=== PATIENT | female | born 1950 | race Caucasian/White ===

== ENCOUNTER 2021-01-09 13:15 | Emergency (ER) | payer MEDICARE, SELFPAY ==
[2021-01-09 13:20] VITALS: BP 117/72; PULSE 86; RESP 34; TEMP 36.9; O2SAT 93; BMI 28.3
--- NOTE | 2021-01-09 13:27 | XR_ITS ---
WS: [id number] XR chest 1V portable [id number] REASON FOR EXAM: allergic reaction FINDINGS: The chest is unchanged compared to 10/07/2017. There is moderate tortuosity of the thoracic aorta without aneurysmal dilatation. There is mild cardi omegaly. Calcified granulomatous disease is seen bilaterally. No active pulmonary parenchymal or pleural disea se is noted. Moderate changes of degenerative spondylosis in the mid and lower thoracic spine. XR/XR chest 1V portable [id number] IMPRESSION: No acute chest abnormality.
--- NOTE | 2021-01-09 13:28 | ECG_ITS ---
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 Measurements Intervals [place] Rate: 75 P: 30 AR: 160 QRS: -24 QRSD: 98 T: 34 QT: 400 QTc: 450 Interpretive Statements SINUS RHYTHM WITH OCCASIONAL SUPRAVENTRICULAR PREMATURE COMPLEXES BORDERLINE LEFT AXIS DEVIATION [QRS AXIS < -20] NONSPECIFIC ST & T-WAVE ABNORMALITY Compared to ECG 10/07/2017 18:26:52 T-wave abnormality now present Sinus arrhythmia no longer present Electronically Signed On 01-10-2021 7:35:51 CDT by Omaira Burns M.D. [id number]
--- NOTE | 2021-01-09 13:29 | ED_ITS ---
HPI - Allergic Reaction General: Chief complaint: Allergic Reaction Stated complaint: ALLERGIC REACTION Time Seen by Provider: 01/09/21 13:27 History of Present Illness: HPI narrative: The patient is a 70-year-old female who comes to the ER with a severe allergic reaction. Hoarse voice, swollen tongue, shortness of breath, and a rash. She says the reaction started last night with tongue swelling and face swelling and she took a Benadryl. This morning it was worse and she took another Benadryl however then she broke out in a rash all over her body and her voice became hoarse so she came to the ED. 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 MD complaint: allergic reaction and facial swelling Exposure: unknown Associated symptoms: Reports difficulty breathing, dysphagia, facial swelling, hoarseness, itching, rash and tongue swelling; Deny dizziness Severity: severe Treatment prior to arrival: benadryl Review of Systems General: Reports: 10 or more systems reviewed and unremarkable except in HPI and below Const: Denies: fatigue Eyes: Denies: change in vision, blurry vision or eye redness ENMT: Reports: hoarseness Card: Denies: chest pain, palpitations, irregular heart rhythm, edema, dyspnea on exertion or orthopnea Resp: Reports: dyspnea; Denies: productive cough or non-productive cough GI: Reports: dysphagia : Denies: flank pain, difficulty voiding, urinary frequency or urinary urgency Musc: Denies: neck pain, back pain, extremity pain, joint pain, joint redness, limited range of motion or muscle weakness Skin/Breast: Reports: rash and erythema; Denies: pruritus, skin pain or skin tenderness Neuro: Denies: headache(s), numbness in extremities, weakness in extremities, sensory changes, difficulty walking, dizziness, confusion or Slurred speech present Psych: Denies: anxiety or depression Endo: Denies: polyuria All/Imm: Reports: tongue swelling and facial swelling Physical Exam Narrative: EXAM NARRATIVE: angioedema to tongue, lips. Swollen face. Rash to chest, arms, back. Const: COMMON NORMALS: patient oriented x3 and alert GENERAL APPEARANCE: well kempt and anxious ORIENTATION/CONSCIOUSNESS: Yes oriented to person, Yes oriented to place and Yes oriented to time HENMT: COMMON NORMALS: normocephalic, external ears normal and Normal external nose present HEAD & SCALP: normal to inspection and normocephalic NOSE: Normal external nose present EXTERNAL EAR: Yes external ears normal MOUTH: Normal oral and palatal mucosa present THROAT: posterior oropharynx normal Eye: COMMON NORMALS: Equal, round and reactive pupils present and EOMs intact bilaterally GENERAL EYE: appearance normal, both eyes and all related structures PUPIL: Yes Equal, round and reactive pupils present Neck/C-Spine: COMMON NORMALS: full ROM, no lymphadenopathy, no meningeal signs and no JVD GENERAL: Yes normal visual inspection Lymph: LYMPHATIC: no lymphadenopathy noted Chest: COMMONS NORMALS: normal inspection of the chest and normal palpation of entire chest wall Resp: COMMON NORMALS: normal respiratory effort, No retractions, No use of accessory muscles, clear to auscultation bilaterally and percussion normal EFFORT & INSPECTION: Yes able to speak in complete sentences AUSCULTATION: clear to auscultation bilaterally PERCUSSION: percussion normal Cardio: COMMON NORMALS: no JVD, regular rate, regular rhythm, S1 normal heart sound present, S2 normal heart sound present and Peripheral pulses 2+ throughout RATE: regular rate RHYTHM: regular rhythm HEART SOUNDS: S1 normal heart sound present and S2 normal heart sound present PERIPHERAL PULSES: Peripheral pulses 2+ throughout GI: COMMON NORMALS: Normal to inspection, nondistended, normoactive bowel sounds present, Soft to palpation, non-tender and no masses INSPECTION: Yes normal to inspection PALPATION: Yes Soft to palpation : COMMON NORMALS: Yes no CVA tenderness BLADDER/KIDNEY EXAM: Yes no CVA tenderness Back/Pelvis: COMMON NORMALS: no CVA tenderness, thoracic and lumbar spine normal to inspection, no thoracic nor lumbar tenderness and thoraco-lumbar ROM normal Extremity: COMMON NORMALS: normal to inspection, full ROM, capillary refill normal, no joint enlargement and no pedal edema GENERAL: Yes normal exam except as noted Neuro: COMMON NORMALS: patient oriented x3, CN's II-XII intact bilaterally, moves all extremities, no focal motor deficits, no sensory deficits noted and gait normal SENSORIUM/ORIENTATION: Yes alert, Yes oriented to person, Yes oriented to place and Yes oriented to time MENINGEAL SIGNS: Yes no meningeal signs Psych: COMMON NORMALS: mental status grossly normal, Normal thought process present, cooperative, normal affect and speech normal APPEARANCE: Yes well kempt ATTITUDE: Yes calm SPEECH: Yes normal speech THOUGHT PROCESS: Normal thought process present Skin: COMMON NORMALS: no rashes or lesions noted GENERAL SKIN EXAM: no rashes or lesions noted Course Vital Signs: Vital signs: Vital Signs Temperature 98.4 F 01/09/21 13:20 Pulse Rate 77 01/09/21 13:51 Respiratory Rate 16 01/09/21 13:45 Blood Pressure 168/81 01/09/21 13:42 Pulse Oximetry 98 01/09/21 13:45 MDM - Allergic Reaction MDM Narrative: Medical decision making narrative: The patient came in with angioedema and rash to unknown trigger. She does have severe history of bee sting allergic reactions however she was not stung. Recommended she keep a diary of medicines and foods as well as other exposures. She was given IV fluids, epinephrine, Benadryl, Pepcid and her symptoms improved rapidly. She is now breathing normal, talking normal, and asking for discharge. Discussed with her in detail how to use the EpiPen at home and Benadryl. ER with worsening symptoms and 911 with any swelling of lips, tongue, or shortness of breath Lab Data: Labs: Lab Results 01/09/21 01/09/21 01/09/21 Range/Units 13:30 13:30 13:52 WBC 9.0 (4.0-10.0) 10^3/ uL RBC 5.09 (4.1-5.3) 10^6/u L Hgb 14.6 (11.5-15.3) g/dL Hct 44.2 (37.0-47.0) % MCV 86.8 (81-99) fL MCH 28.7 (28.0-34.0) pg MCHC 33.0 (30.0-36.0) g/dL RDW 14.2 (12.1-15.1) % Plt Count 344 (130-400) 10^3/c mm MPV 11.0 H (7.4-10.4) fL Neut % (Auto) 54.6 % Lymph % (Auto) 33.2 % [place] % (Auto) 8.0 % Eos % (Auto) 3.4 % Baso % (Auto) 0.6 % Neut # (Auto) 4.93 (1.8-7.7) 10^3/u L Lymph # (Auto) 3.0 (0.8-4.8) 10^3/u L [place] # (Auto) 0.7 (0.2-0.9) 10^3/u L Eos # (Auto) 0.3 (0.0-0.8) 10^3/u L Baso # (Auto) 0.1 (0.0-0.1) 10^3/u L Nucleated RBC % (a uto) 0 % Nucleated RBCs # 0.0 /100WBC Specimen Type Arterial Sample Site Lr ABG pH 7.40 (7.35-7.45) ABG pCO2 37.8 (35-45) mmHg ABG pO2 77.8 L (80.0-100.0) mmH g ABG HCO3 23.7 (22-26) mmol/L ABG Base Excess -0.7 (-2.0-2.0) mmol/ L Bonifacio Test Pos Hematocrit 23.7 L (37-47) % O2 Delivery Device Roomair FiO2 21.0 % Specimen Drawn By [employer]ak Material Handling Equipment Stevedore ID Cak Sodium 139 (136-145) mmol/L Potassium 3.5 (3.5-5.1) mmol/L Chloride 102 (98-107) mmol/L Carbon Dioxide 24 (22-29) mmol/L Anion Gap 16.5 (5-19) BUN 15 (8-23) mg/dL Creatinine 0.8 (0.5-0.9) mg/dL GFR Calculation 71.1 L (90-130) mL/min Glucose 142 H (65-115) mg/dL Calculated Osmolal ity 291 (285-295) mOsm/k g Calcium 9.8 (8.5-10.5) mg/dL Total Bilirubin 0.6 (0.15-1.2) mg/dL AST 18 (0-32) U/L ALT 23 (0-33) U/L Alkaline Phosphata se 62 (35-105) IU/L Total Protein 7.5 (6.6-8.7) g/dL Albumin 4.7 (3.5-5.2) g/dL Globulin 2.8 (1.3-4.6) g/dL Urine Color (Yellow) Urine Appearance (CLEAR) Urine pH (5-7) Ur Specific Gravit y (1.005-1.030) Urine Protein (Negative) Urine Glucose (UA) (Normal) Urine Ketones (Negative) Urine Blood (Negative) Urine Nitrate (Negative) Urine Bilirubin (Negative) Urine Urobilinogen (Negative) mg/dL Ur Leukocyte Chiara ase (Negative) 01/09/21 Range/Units 14:46 WBC (4.0-10.0) 10^3/ uL RBC (4.1-5.3) 10^6/u L Hgb (11.5-15.3) g/dL Hct (37.0-47.0) % MCV (81-99) fL MCH (28.0-34.0) pg MCHC (30.0-36.0) g/dL RDW (12.1-15.1) % Plt Count (130-400) 10^3/c mm MPV (7.4-10.4) fL Neut % (Auto) % Lymph % (Auto) % [place] % (Auto) % Eos % (Auto) % Baso % (Auto) % Neut # (Auto) (1.8-7.7) 10^3/u L Lymph # (Auto) (0.8-4.8) 10^3/u L [place] # (Auto) (0.2-0.9) 10^3/u L Eos # (Auto) (0.0-0.8) 10^3/u L Baso # (Auto) (0.0-0.1) 10^3/u L Nucleated RBC % (a uto) % Nucleated RBCs # /100WBC Specimen Type Sample Site ABG pH (7.35-7.45) ABG pCO2 (35-45) mmHg ABG pO2 (80.0-100.0) mmH g ABG HCO3 (22-26) mmol/L ABG Base Excess (-2.0-2.0) mmol/ L Bonifacio Test Hematocrit (37-47) % O2 Delivery Device FiO2 % Specimen Drawn By Material Handling Equipment [employer]ore ID Sodium (136-145) mmol/L Potassium (3.5-5.1) mmol/L Chloride (98-107) mmol/L Carbon Dioxide (22-29) mmol/L Anion Gap (5-19) BUN (8-23) mg/dL Creatinine (0.5-0.9) mg/dL GFR Calculation (90-130) mL/min Glucose (65-115) mg/dL Calculated Osmolal ity (285-295) mOsm/k g Calcium (8.5-10.5) mg/dL Total Bilirubin (0.15-1.2) mg/dL AST (0-32) U/L ALT (0-33) U/L Alkaline Phosphata se (35-105) IU/L Total Protein (6.6-8.7) g/dL Albumin (3.5-5.2) g/dL Globulin (1.3-4.6) g/dL Urine Color Straw (Yellow) Urine Appearance Clear (CLEAR) Urine pH 6 (5-7) Ur Specific Gravit y 1.000 L (1.005-1.030) Urine Protein Neg (Negative) Urine Glucose (UA) Norm (Normal) Urine Ketones Negative (Negative) Urine Blood 2+ H (Negative) Urine Nitrate Negative (Negative) Urine Bilirubin Neg (Negative) Urine Urobilinogen Norm (Negative) mg/dL Ur Leukocyte Chiara ase Negative (Negative) Discharge Plan Discharge Patient Disposition: Home Clinical Impression: Allergic reaction Condition: Stable Prescriptions: New Medrol (Yifan) 4 mg tablets,dose pack See Rx Instructions .ROUTE .COMPLEX Qty: 21 RF: 0 EpiPen 2-Yifan 0.3 mg/0.3 mL auto-injector 0.3 mg IM Q10M PRN (Reason: anaphylaxis) Qty: 2 RF: 0 Benadryl 25 mg capsule 25 mg PO Q4H PRN (Reason: allergic reaction) Qty: 30 RF: 0 No Action hydrocodone-acetaminophen 10-325 mg tablet 1 - 2 tab PO Q4H PRN (Reason: Pain) RF: 0 diclofenac sodium 75 mg tablet,delayed release (DR/EC) 75 mg PO BID RF: 0 losartan-hydrochlorothiazide 50-12.5 mg tablet 1 tab PO QAM RF: 0 duloxetine 30 mg capsule,delayed release(DR/EC) See Rx Instructions .ROUTE .COMPLEX RF: 0 Adult Multivitamin Gummies 200 mcg Tablet,Chewable 1 tab PO BID RF: 0 Tylenol Extra Strength 500 mg Tablet 500 - 1,000 mg PO PRN RF: 0 Discharge Orders: Discharge ED (Routine); Ordered 01/09/21 Ordered By: Harrison Bassett Referrals: Yash Sosa, [Primary Care Provider] - Discharge Diet: Advance as tolerated Discharge Activity: Resume usual activity Patient Instructions: Allergic Reaction, Angioedema (ED), Opioid Safety Activity Restrictions/Additional Instructions: You have had an allergic reaction to an unknown trigger. Please keep a diary of foods and medicines you take and watch for return of your symptoms. Return to the ER if symptoms worsen or call 911 if you are at all short of breath or have any lip, or tongue swelling. Coding Level of Care Code ED Licensed Clinical Psychologist for Chg Fwd Exam Comprehensive
[2021-01-09] MEDS: EPINEPHrine 1 mg/mL INJ 0.3 MG IM (13:33)
[2021-01-09] MEDS: diphenhydrAMINE 50 mg/mL SDV 1mL IVP (13:33)
[2021-01-09] MEDS: sodium chloride 0.9% 1,000 ML 999 ML IV (13:33)
[2021-01-09 13:36] VITALS: BP 120/73; PULSE 80; RESP 16; O2SAT 97
[2021-01-09 13:42] VITALS: BP 168/81; PULSE 78; RESP 18; O2SAT 98
[2021-01-09] MEDS: famotidine 20 mg/2 mL INJ 40 MG IVP (13:43)
[2021-01-09 13:45] VITALS: PULSE 71; RESP 16; O2SAT 98
[2021-01-09] MEDS: ipratropium-albuterol 3 mL Neb INHALATION (13:45)
[2021-01-09 13:51] VITALS: PULSE 77
[2021-01-09 13:52] LABS: Basophils # 0.1 10^3/uL (0.0-0.1); Basophils % 0.6 %; Eosinophils # 0.3 10^3/uL (0.0-0.8); Eosinophils % 3.4 %; Hematocrit 44.2 % (37.0-47.0); Hemoglobin 14.6 g/dL (11.5-15.3); Lymphocytes % 33.2 %; Mean Corpuscular Hemoglobin 28.7 pg (28.0-34.0); Mean Corpuscular Volume 86.8 fL (81-99); Monocytes # 0.7 10^3/uL (0.2-0.9); Neutrophils # 4.93 10^3/uL (1.8-7.7); Neutrophils % 54.6 %; Nucleated Red Blood Cells % 0 %; Platelet Count 344 10^3/cmm (130-400); Red Blood Count 5.09 10^6/uL (4.1-5.3); Red Cell Distribution Width 14.2 % (12.1-15.1)
[2021-01-09 14:03] LABS: ABG PCO2 37.8 mmHg (35-45); Base Excess ABG -0.7 mmol/L (-2.0-2.0); Blood Gas Allen Test POS; Blood Gas Drawn By CAK; Blood Gas Operator Identificat CAK; HCO3 ABG 23.7 mmol/L (22-26); Oxygen Device ROOMAIR; PO2 ABG 77.8 mmHg (80.0-100.0)
[2021-01-09 14:04] LABS: Arterial Blood Gas Hematocrit 23.7 % (37-47); Blood Gas Sample Site LR; Blood Gas Sample Type ARTERIAL
[2021-01-09 14:12] LABS: Alanine Aminotransferase 23 U/L (0-33); Albumin Level 4.7 g/dL (3.5-5.2); Alkaline Phosphatase 62 IU/L (35-105); Anion Gap 16.5 (5-19); Aspartate Amino Transferase 18 U/L (0-32); Blood Urea Nitrogen 15 mg/dL (8-23); Calcium 9.8 mg/dL (8.5-10.5); Carbon Dioxide 24 mmol/L (22-29); Chloride 102 mmol/L (98-107); Globulin 2.8 g/dL (1.3-4.6); Glomerular Filtration Rate 71.1 mL/min (90-130); Glucose 142 mg/dL (65-115); Osmolality Calculated 291 mOsm/kg (285-295); Potassium 3.5 mmol/L (3.5-5.1); Sodium 139 mmol/L (136-145); Total Bilirubin 0.6 mg/dL (0.15-1.2); Total Protein 7.5 g/dL (6.6-8.7)
[2021-01-09] MEDS: dexamethasone 10 mg/mL INJ IVP (14:52)
[2021-01-09 15:06] LABS: Add Urine Microscopic? YES; Bilirubin Urine Neg (Negative); Blood Urine 2+ (Negative); Glucose Urine UA Norm (Normal); Ketones Urine Negative (Negative); Leukocyte Esterase Urine Negative (Negative); Nitrate Urine Negative (Negative); Protein Urine Neg (Negative); Urine Appearance Clear (CLEAR); Urine Color Straw (Yellow); Urobilinogen Urine Norm (Negative); pH Urine 6 (5-7)
[2021-01-09 15:13] LABS: Add Urine Culture? No; Bacteria Urine TRACE /hpf; Hyaline Casts Urine 0-4 /lpf; RBC Urine 0-4 /hpf (0-2); Squamous Epithelial Cell Urine 0-4 /hpf (0-5); WBC Urine 0-4 /hpf (0-5)
[2021-01-09 15:40] VITALS: BP 160/63; PULSE 63; RESP 17; O2SAT 96
== END 2021-01-09 15:42 | disposition home or self-care (01) ==
PROVIDERS: Emergency Provider Family Medicine; PCP Family Medicine
DX: T78.40XA Allergy, unspecified, initial encounter (principal)
CPT/HCPCS: 36600; 71045; 80053; 81001; 82803; 85025; 93005; 94640; 96361; 96372; 96374; 96375; 99284; J0171; J1100; J1200; J3490; J7030

== ENCOUNTER → 2023-02-18 12:49 | Outpatient (BNVA) | payer MEDICARE, SELFPAY | PROVIDERS: PCP Family Medicine; Visit Provider Family Medicine | DX: I10 Essential (primary) hypertension (principal); F41.9 Anxiety disorder, unspecified; G89.29 Other chronic pain; M19.90 Unspecified osteoarthritis, unspecified site | CPT/HCPCS: 80053; 80061 ==

== ENCOUNTER 2023-06-11 10:34 | Inpatient (IN) | payer MEDICARE, SELFPAY ==
[2023-06-11] VITALS (57 sets, daily range): BP systolic 130–230; BP diastolic 55–100; PULSE 40–91; RESP 15–40; TEMP 37.1; O2SAT 91–98; BMI 26.5
--- NOTE | 2023-06-11 10:56 | XRR_ITS ---
PROCEDURE INFORMATION: Exam: XR Chest Exam date and time: 06/11/2023 11:03 AM Age: 72 years old Clinical indication: Cough and dyspnea; Additional info: Dyspnea/cough TECHNIQUE: Imaging protocol: Radiologic exam of the chest. Views: 1 view. COMPARISON: 1. CR XR chest 1V portable [id number] 01/09/2021 1:54 PM 2. CR XR chest 1V [id number] 10/07/2017 5:42 PM 3. CR XR chest 1V [id number] 02/09/2017 11:46 AM FINDINGS: Lungs: Pulmonary vascular congestion. No consolidation. Pleural spaces: No pleural effusion or pneumothorax. Heart/Mediastinum: Enlarged cardiac silhouette. Bones/joints: Multiple old right rib fractures. Degenerative changes along the spine. XR/XR chest 1V portable [id number] IMPRESSION: Cardiomegaly and pulmonary vascular congestion.
--- NOTE | 2023-06-11 10:59 | W.ED.ARRPALP ---
HPI - Arrhythmia/Palpitations General: Chief Complaint: Arrhythmia/Palpitations Stated Complaint: physician sent, high bp, sob Time Seen by Provider: 06/11/23 10:48 Source: patient Mode of arrival: ambulatory History of Present Illness: 72-year-old female presents emergency room with hypertension and bradycardia. Patient was seen yesterday by Dr. Quiñones was bradycardic and was advised to go to the emergency room she arrived this morning. She still is hypertensive and bradycardic she is also having some new onset orthopnea. No fever sweats or chills no productive cough. She is not on any beta-blockers or calcium channel blockers. She denies any chest discomfort. MD complaint: rapid heart beat and heart racing Onset (ago): day(s) Duration: intermittent Severity: moderate Context: occurred during rest Associated symptoms: Deny anxiety, cough, diaphoresis, muscle cramps, nausea, paresthesias, pre-syncope, sense of impending doom, short of breath, syncope or vomiting Review of Systems Const: Denies: fever(s), chills, fatigue, malaise or diaphoresis ENMT: Denies: throat pain, ear or mastoid pain, nasal discharge or nasal congestion Card: Reports: palpitations; Denies: chest pain, syncope or pre-syncope Resp: Denies: dyspnea, productive cough or non-productive cough GI: Denies: nausea or vomiting : Denies: flank pain, difficulty voiding, dysuria, urinary frequency or urinary urgency Musc: Denies: neck pain, back pain or muscle cramps Skin/Breast: Denies: rash or pruritus Psych: Denies: anxiety PFSH ED PFSH: Medical History Arthritis Chronic pain Fatigue Hypertension Social History Smoking and tobacco status: never smoked Lives independently: Yes Physical Exam Const: GENERAL APPEARANCE: cooperative and comfortable ORIENTATION/CONSCIOUSNESS: Yes awake, Yes oriented to person, Yes oriented to place and Yes oriented to time HENMT: COMMON NORMALS: normocephalic, atraumatic and hearing grossly normal bilaterally HEAD & SCALP: normocephalic and atraumatic Resp: COMMON NORMALS: normal respiratory effort, No retractions, No use of accessory muscles and clear to auscultation bilaterally AUSCULTATION: clear to auscultation bilaterally Cardio: COMMON NORMALS: regular rhythm RATE: bradycardic RHYTHM: regular rhythm GI: COMMON NORMALS: Soft to palpation and No hepatosplenomegaly present AUSCULTATION: Yes normoactive bowel sounds PALPATION: Yes Soft to palpation, No Tenderness to palpation present (GI), No Guarding due to palpation present (GI) and Yes No hepatosplenomegaly present Extremity: COMMON NORMALS: normal to inspection, capillary refill normal, no clubbing, cyanosis or edema, no calf tenderness and no pedal edema Neuro: SENSORIUM/ORIENTATION: Yes oriented to person, Yes oriented to place and Yes oriented to time Skin: COMMON NORMALS: no rashes or lesions noted GENERAL SKIN EXAM: no rashes or lesions noted Course Vital Signs: Vital signs: Vital Signs Temperature 98.7 F 06/11/23 10:49 Pulse Rate 43 L 06/11/23 13:30 Respiratory Rate 19 H 06/11/23 13:30 Blood Pressure 176/62 06/11/23 13:15 Pulse Oximetry 96 06/11/23 13:30 MDM - Arrhythmia/Palpitations Medical Decision Making Patient has bradycardia at times his rhythm strips look like he has a full third-degree block at other times it does look like a Mobitz type II. She is actually hypertensive with that and she does appear to be in some mild congestive heart failure she is given 40 Lasix as well as hydralazine we will admit patient to the ICU discussed Dr. Diaz and consult cardiology. Medical Records I reviewed the patient's medical records. Lab Data I reviewed the patient's lab results. 06/11/23 11:17 06/11/23 11:17 Radiology Impressions Chest X-Ray 06/11/23 10:56 IMPRESSION: Cardiomegaly and pulmonary vascular congestion. Laboratory Results WBC 8.2 10^3/uL (4.0-10.0) 06/11/23 11:17 RBC 4.69 10^6/uL (4.1-5.3) 06/11/23 11:17 Hgb 13.4 g/dL (11.5-15.3) 06/11/23 11:17 Hct 42.7 % (37.0-47.0) 06/11/23 11:17 MCV 91.0 fl (81-99) 06/11/23 11:17 MCH 28.6 pg (28.0-34.0) 06/11/23 11:17 MCHC 31.4 g/dL (30.0-36.0) 06/11/23 11:17 RDW 15.9 % (12.1-15.1) H 06/11/23 11:17 Plt Count 281 10^3/cmm (130-400) 06/11/23 11:17 MPV 10.3 fL (7.4-10.4) 06/11/23 11:17 Neut % (Auto) 80.3 % 06/11/23 11:17 Lymph % (Auto) 11.8 % 06/11/23 11:17 [place] % (Auto) 6.8 % 06/11/23 11:17 Eos % (Auto) 0.2 % 06/11/23 11:17 Baso % (Auto) 0.7 % 06/11/23 11:17 Neut # (Auto) 6.61 10^3/uL (1.8-7.7) 06/11/23 11:17 Lymph # (Auto) 1.0 10^3/uL (0.8-4.8) 06/11/23 11:17 [place] # (Auto) 0.6 10^3/uL (0.2-0.9) 06/11/23 11:17 Eos # (Auto) 0.0 10^3/uL (0.0-0.8) 06/11/23 11:17 Baso # (Auto) 0.1 10^3/uL (0.0-0.1) 06/11/23 11:17 Nucleated RBC % (auto) 0 % 06/11/23 11:17 Nucleated RBCs # 0.0 /100WBC 06/11/23 11:17 Sodium 141 mmol/L (136-145) 06/11/23 11:17 Potassium 3.6 mmol/L (3.5-5.1) 06/11/23 11:17 Chloride 103 mmol/L (98-107) 06/11/23 11:17 Carbon Dioxide 23 mmol/L (22-29) 06/11/23 11:17 Anion Gap 18.6 (5-19) 06/11/23 11:17 BUN 14 mg/dL (8-23) 06/11/23 11:17 Creatinine 0.8 mg/dL (0.5-0.9) 06/11/23 11:17 GFR Calculation Not Reportable 06/11/23 11:17 Glucose 106 mg/dL (65-115) 06/11/23 11:17 Calculated Osmolality 293 mOsm/kg (285-295) 06/11/23 11:17 Calcium 9.7 mg/dL (8.5-10.5) 06/11/23 11:17 Total Bilirubin 1.7 mg/dL (0.15-1.2) H 06/11/23 11:17 AST 14 U/L (0-32) 06/11/23 11:17 ALT 15 U/L (0-33) 06/11/23 11:17 Alkaline Phosphatase 77 U/L (35-105) 06/11/23 11:17 Troponin T Baseline 22 ng/L (0-10) H 06/11/23 11:17 Troponin T 120 Minute 38.19 ng/L (0-10) H 06/11/23 13:28 Delta Troponin T 16.19 ABS# (0-10) H* 06/11/23 13:28 NT-Pro-B Natriuret Pep 6747 pg/mL (0-125) H 06/11/23 11:17 Total Protein 6.9 g/dL (6.6-8.7) 06/11/23 11:17 Albumin 4.1 g/dL (3.5-5.2) 06/11/23 11:17 Globulin 2.8 g/dL (1.3-4.6) 06/11/23 11:17 TSH 1.43 uIU/mL (0.27-4.20) 06/11/23 11:17 Discharge Plan Discharge Patient Disposition: Admitted As Inpatient Clinical Impression: Heart block, Hypertension, Congestive heart failure Condition: Stable Coding Level of Care Code ED Supervisor Assembly Department for Rena Hannah
--- NOTE | 2023-06-11 11:08 | ECG_ITS ---
[facility] Test Date: 2023-06-11 Pat Name: Cecily Tyler Department: Room: Gender: Female Manager Music: : 1950 Requested By: Joshua Frias Order Number: [id number] Dana MD: José Miguel Pichardo M.D. Measurements Intervals [place] Rate: 46 P: 80 NE: 186 QRS: -13 QRSD: 94 T: 78 QT: 447 QTc: 391 Interpretive Statements Third-degree AV block POSSIBLE RIGHT ATRIAL ENLARGEMENT [0.25mV P-WAVE] NONSPECIFIC ST & T-WAVE ABNORMALITY Compared to ECG 01/09/2021 13:33:24 Sinus rhythm no longer present T-wave abnormality still present Electronically Signed On 06-11-2023 14:44:31 CDT by José Miguel Pichardo M.D. [id number]
[2023-06-11 11:25] LABS: Basophils # 0.1 10^3/uL (0.0-0.1); Basophils % 0.7 %; Eosinophils % 0.2 %; Hematocrit 42.7 % (37.0-47.0); Hemoglobin 13.4 g/dL (11.5-15.3); Lymphocytes % 11.8 %; Mean Corpuscular HGB Conc 31.4 g/dL (30.0-36.0); Mean Corpuscular Hemoglobin 28.6 pg (28.0-34.0); Mean Platelet Volume 10.3 fL (7.4-10.4); Monocytes # 0.6 10^3/uL (0.2-0.9); Monocytes % 6.8 %; Neutrophils # 6.61 10^3/uL (1.8-7.7); Neutrophils % 80.3 %; Nucleated Red Blood Cells % 0 %; Platelet Count 281 10^3/cmm (130-400); Red Blood Count 4.69 10^6/uL (4.1-5.3); Red Cell Distribution Width 15.9 % (12.1-15.1); White Blood Count 8.2 10^3/uL (4.0-10.0)
[2023-06-11] MEDS: hyDRALAzine 20 mg/mL INJ 1 mL IVP (11:42)
[2023-06-11] MEDS: FUROsemide 10 mg/mL SDV 4mL 40 MG IVP (11:43)
--- NOTE | 2023-06-11 11:50 | PC.NURSE ---
Addendum entered by Sharon King RN 06/11/23 11:52: time correction @1150 Original Note: furosemide 40mg given to MOON Cottrell to administer @9770
[2023-06-11 11:54] LABS: Troponin(5th) Baseline 22 ng/L (0-10)
[2023-06-11 12:17] LABS: Alanine Aminotransferase 15 U/L (0-33); Albumin Level 4.1 g/dL (3.5-5.2); Alkaline Phosphatase 77 U/L (35-105); Anion Gap 18.6 (5-19); Aspartate Amino Transferase 14 U/L (0-32); Blood Urea Nitrogen 14 mg/dL (8-23); Calcium 9.7 mg/dL (8.5-10.5); Carbon Dioxide 23 mmol/L (22-29); Chloride 103 mmol/L (98-107); Globulin 2.8 g/dL (1.3-4.6); Glucose 106 mg/dL (65-115); NT Pro B Type Natriuretic Pept 6747 pg/mL (0-125); Osmolality Calculated 293 mOsm/kg (285-295); Potassium 3.6 mmol/L (3.5-5.1); Sodium 141 mmol/L (136-145); Thyroid Stimulating Hormone 1.43 uIU/mL (0.27-4.20); Total Bilirubin 1.7 mg/dL (0.15-1.2); Total Protein 6.9 g/dL (6.6-8.7)
--- NOTE | 2023-06-11 12:19 | ECG_ITS ---
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 Measurements Intervals [place] Rate: 51 P: 0 [place]: 0 QRS: -15 QRSD: 98 T: 70 QT: 592 QTc: 549 Interpretive Statements Third-degree AV block MODERATE ST DEPRESSION [0.05+ mV ST DEPRESSION] PROLONGED QT INTERVAL CRITICAL TEST RESULT Compared to ECG 06/11/2023 11:08:16 Ventricular premature complex(es) now present ST (T wave) deviation now present Prolonged QT interval now present T-wave abnormality no longer present Electronically Signed On 06-11-2023 14:47:35 CDT by José Miguel Pichardo M.D. [id number]
[2023-06-11] MEDS: promethazine 25 mg/mL SDV 1 mL 12.5 MG IM (12:42)
--- NOTE | 2023-06-11 12:51 | ECG_ITS ---
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 Measurements Intervals [place] Rate: 41 P: 81 [place]: 177 QRS: 2 QRSD: 102 T: 74 QT: 593 QTc: 494 Interpretive Statements Third-degree AV block POSSIBLE RIGHT ATRIAL ENLARGEMENT [0.25mV P-WAVE] ST DEVIATION AND MODERATE T-WAVE ABNORMALITY, CONSIDER ANTERIOR ISCHEMIA [-0.1+ mV T-WAVE IN V3/V4] PROLONGED QT INTERVAL CRITICAL TEST RESULT Compared to ECG 06/11/2023 12:19:37 T-wave abnormality now present Possible ischemia now present Ventricular premature complex(es) no longer present ST (T wave) deviation no longer present Electronically Signed On 06-11-2023 14:45:21 CDT by José Miguel Pichardo M.D. [id number]
--- NOTE | 2023-06-11 13:33 | XACV_ITS ---
Exam Room: 2 Ht: 160 cm Wt: 68 kg BSA: 1.76 m2 Gender: Female : 1950 Any Known Allergies: Other Exam Priority: Routine Procedure(s): Procedure Description: Diagnostic procedure Procedure Description: Miscellaneous Procedure Description: Temporary Pacemaker Insertion Procedure Description: Coronary Angiography Diagnostic Cath Status: Urgent Diagnostic Findings * INDICATION: Congestive heart failure/ 2:1 AV block. * No significant disease noted in the Left Main, Left Anterior Descending, Right, or Circumflex coronary arteries. * Coronary angiography shows right dominance. Interventional Findings * PROCEDURE DETAIL: We obtained access in right common femoral vein. We advanced a temporary transvenous pacemaker and under flouroscopic guidance placed in the RV. It was put in asynchonous pacing mode at 60bpm. Patient was transferred to ICU in a stable condition. . Conclusions 1. No significant disease noted in the Left Main, Left Anterior Descending, Right, or Circumflex coronary arteries. 2. Successful placement of transvenous temporary pacemaker. Recommendations * Transfer to ICU. * Patient will need permanent pacemaker placement. Likely tomorrow. NPO past midnight. Pressures Phase:Rest AO : 186 / 87 ( 99 ) @ 3:47:00 PM RV : 56 / 4 / 16 @ 4:10:00 PM Clinical Evaluation EBL: 5mL-10mL Procedural Details Procedure Consent Obtained. Admit Source: Emergency department. Pre-Procedure Time Out. Identified patient by full name and date of as verbalized by the patient/guarantor. Does the consent match the physician's order: Yes. Accurate & Complete Informed Consent: Yes. Inpatient/Outpatient History & Physical on Chart: No. If H&P is completed, is and addenduem needed: No; If yes, is the addendum complete: No. Visualize and Verify Site with Patient/Guarantor: N/A. Relevant Radiology Images available: N/A. The risks, benefits, and alternatives of sedation and/or procedure were discussed by physician. The patient agrees to continue. Procedure started. [facility] Clinical Fraility Score: 4: Vulnerable. Team Supervisor Indications: 2:1 Av Block, CHF. Correct patient, site and procedure confirmed by cath team. Current diagnosis: Heart Block, CHF. PERRLA. Strong, equal hand senior advisor bilaterally. Lungs clear x 5 lobes. IV Site on Arrival: 18 gauge in the right anticubital. IV Fluids: 0.9% NaCl at 75ml/hr. 0 mL infused prior to cath lab radiological technologist. Oxygen started at 3liters/min via nasal canula. Pre Procedural Pulses: right radial was 3+. Pre Procedural Pulses: bilateral posterior tibial was Doppled. Pre Procedural Pulses: bilateral dorsalis pedis was Doppled. right groin was prepped with chloroprep then draped in the usual sterile fashion. right radial was prepped with chloroprep then draped in the usual sterile fashion. Physician notified. Baseline sample Acquired. HR: 42 BPM. Physician arrived. Physician scrubbed in. Immediate Pre-Procedure Time Out. Correct Patient: Yes; Correct Procedure: Yes; Correct Site: Yes; Correct Patient Position: Yes; Correct Supplies: Yes; Dried Flammable Prep: Yes; Blood Products Available: N/A;. AP pads applied. Lidocaine 1% infiltrated to the right radial. Arterial access obtained. A 5 chinese TIG catheter in over wire. Subclavian tortuosity, unable to advance catheter. Catheter and exchange wire out. Lidocaine 1% infiltrated to the right groin. Arterial access obtained with micropuncture set. A 5 chinese JL4 catheter in over wire. Multiple views taken of left coronary artery. Catheter removed over the standard wire. A 5 chinese JR4 catheter in over wire. Multiple views taken of right coronary artery. Catheter removed over the standard wire. Lidocaine 1% infiltrated to the right groin. Venous access obtained with a micropuncture set. A Right femoral angiogram was performed to determine safe placement of closure device. A Angio-Seal VIP ([place] Delfin) was successful obtaining hemostatsis at the Right Femoral artery insertion site. EXP 11-26-2023, LOT # [id number]. Temporary pacer inserted,TPM tested. V-paced without capture. Temporary pacer removed. Buffalo-Lauri MON catheter inserted. RV waveform to confirm placement of TPM lead. Buffalo catheter out. Temporary pacer inserted. Rate: 60, Asynchronous. MA: 2. A Suture was successful obtaining hemostatsis at the Right Femoral vein insertion site. A TR Band was successful obtaining hemostatsis at the Right Radial artery insertion site. Post Procedure: Pulses reassessed and unchanged. PERRLA. Strong, equal hand senior advisor bilaterally. No VTE prophylaxis required. Medication's Wasted: Nitro = 49.8 mg. Medication's Wasted: Heparin = 6000 units. Medication's Wasted: Other = Fentanyl mcg. Total IV fluids: 60 mL. External measurement of TPM 53cm. Post-op diagnosis: Patent Coronary Arteries, Successful placement of TPM. Complications: None. Estimated blood loss: 5mL-10mL. Responsiveness - Normal response to verbal stimuli; alert and oriented, PERRLA. Airway - Unaffected, no intervention required; spontaneous ventilation. Circulation: W/N/L, pulses unchanged. Nausea/Vomiting: N/A. Procedure completed. Patient transferred by bed to ICU. Vital chart was stopped. Access Site Site: Right Radial artery Sheath Size: 6 Fr Hemostasis Method: TR Band Hemostasis Success: Successful Site: Right Femoral artery Sheath Size: 6 Fr Hemostasis Method: Angio-Seal VIP ([place] Delfin) Hemostasis Success: Successful Site: Right Femoral vein Sheath Size: 6 Fr Hemostasis Method: Suture Hemostasis Success: Successful Procedure Medications Start: 2:36 PM Stop: 2:36 PM Medication: Versed Amount: 1 mg Route: I.V. Start: 2:36 PM Stop: 2:36 PM Medication: Fentanyl Amount: 50 mcg Route: I.V. Start: 2:39 PM Stop: 2:39 PM Medication: Nitrogylcerin Amount: 200 mcg Route: I.A. Start: 2:44 PM Stop: 2:44 PM Medication: Versed Amount: 1 mg Route: I.V. I, the attending physician, have reviewed and verified all procedure medications. Yes, all medications given per verbal order History/Risk Factors Hypertension: Yes Dyslipidemia: No Peripheral Arterial Disease (PAD): No Myocardial Infarction (PR): No Obesity: No Renal Disease: No Prior Interventions PCI: No CABG: No Valve Surgery: No Report Signatures Finalized by Mik Nolasco MD on 06/25/2023 05:25 PM
[2023-06-11 13:57] LABS: Troponin 5 2HR 38.19 ng/L (0-10)
[2023-06-11 14:04] LABS: Troponin 5 2HR Delta 16.19 ABS# (0-10)
--- NOTE | 2023-06-11 14:09 | PC.NURSE ---
RONTAL LAB CHARTED, MARY IN [facility] AT TIME OF NOTIFIED. DELTA TROP 16.19
--- NOTE | 2023-06-11 14:33 | P.HPUD_ITS ---
Surgery/Procedure H&P Update DATE OF PROCEDURE: June 11, 2023 DATE H&P PERFORMED: 06/11/23 H&P UPDATE INFORMATION: I have reviewed H&P completed within last 30 days, I have examined patient prior to procedure and No changes to prior documentation PREOP DIAGNOSIS: Congestive heart failure/ 2:1 AV block PRIMARY INDICATION FOR PROCEDURE: Congestive heart failure/ 2:1 AV block PLANNED PROCEDURE: Left heart cath with possible percutaneous coronary intervention PATIENT REASSESSED PRIOR TO SEDATION, WITH NO CHANGE NOTED: Yes PHYSICAL EXAM: alert, oriented x 3, clear to auscultation bilaterally and regular rate & rhythm OTHER PERTINENT EXAM FINDINGS: Grade 3/6 systolic murmur AIRWAY EVAL/ANESTHESIA PLAN: normal airway, ASA III, Local Anesthesia, Risks, benefits & alternatives of sedation and/or procedure discussed and Patient ag emanuel to continue as planned
--- NOTE | 2023-06-11 14:33 | PM.CONSULT ---
Providers/Reason For Consult Consulting Physician/Specialty*: Mik Nolasco MD/ Cardiology Reason for Consult*: 2:1 AV block/ congestive heart failure Requesting Physician: Dr Rodney Attending Physician: Santi Diaz Primary Care Provider: Yash Sosa DO History of Present Illness History of Present Illness Cecily Tyler is a 72 year old female with no significant prior cardiac history has been having symptoms of shortness of breath and fatigue for the last 2 weeks. According to her , she was dozing off unexpectedly. Yesterday she was seen in primary care office and was advised to go to the emergency room as was significantly bradycardic. However she presented to the emergency room today. She was found to be in high degree AV block(2:1 AV block ). Blood pressure is stable. Review of Systems Const: Reports: fatigue; Denies: fever(s) or chills Eyes: Denies: change in vision ENMT: Denies: throat pain Card: Reports: palpitations, lightheadedness, dyspnea on exertion and orthopnea Resp: Reports: dyspnea; Denies: productive cough or hemoptysis GI: Reports: abdominal pain and nausea; Denies: hematemesis : Denies: difficulty voiding Musc: Reports: back pain and joint pain Neuro: Denies: headache(s), weakness in extremities or sensory changes Psych: Denies: anxiety or depression Medications/Allergies Home Medications Medication Instructions Recorded Confirmed Last Taken Type diphenhydramine HCl 25 mg capsule 25 mg PO Q4H PRN allergic reaction 01/09/21 06/11/23 Unknown Rx (Benadryl) #30 caps duloxetine 30 mg capsule,delayed 30 mg PO DAILY 01/09/21 06/11/23 Unknown History release epinephrine 0.3 mg/0.3 mL 0.3 mg (0.3 mL) IM Q10M PRN 01/09/21 06/11/23 Unknown Rx injection, auto-injector (EpiPen anaphylaxis #2 ea 2-Yifan) multivitamin with minerals-folic 1 tab PO BID 01/09/21 06/11/23 06/11/23 History acid 200 mcg chewable tablet (Adult Multivitamin Gummies) hydrocodone 10 mg-acetaminophen 1 - 2 tab PO Q4H PRN Pain 1 month 05/14/23 06/11/23 Unknown Rx 325 mg tablet #120 tabs losartan 100 1 tab PO DAILY #90 tabs 05/27/23 06/11/23 06/11/23 Rx mg-hydrochlorothiazide 25 mg tablet alprazolam 0.5 mg tablet 0.5 mg PO TID PRN Anxiety 06/11/23 06/11/23 Unknown History diclofenac sodium 75 mg 75 mg PO BID 06/11/23 06/11/23 06/11/23 History tablet,delayed release gabapentin 400 mg capsule 400 mg PO BEDTIME 06/11/23 06/11/23 06/10/23 History Allergies Allergy/AdvReac Type Severity Reaction Status Date / Time prednisone Allergy Mild stomach Uncoded 06/10/23 10:26 trouble, insomnia PFSH Acute PFSH: Medical History Arthritis Chronic pain Fatigue Hypertension Social History Smoking and tobacco status: never smoked Lives independently: Yes Vitals/I&O/Wt Last Vital Signs Temp 98.7 F 06/11/23 10:49 Pulse 43 L 06/11/23 13:30 Resp 19 H 06/11/23 13:30 BP 176/62 06/11/23 13:15 Pulse Ox 96 06/11/23 13:30 Weight last 48 hrs Weight 150 lb Physical Exam Narrative: GENERAL: Patient is alert, awake and oriented x3. [] NECK: No jugular vein distension. [] HEENT: No cyanosis. No icterus. No pallor. [] HEART: Bradycardic, grade 3/6 systolic murmur LUNGS: Bilateral crackles CENTRAL NERVOUS SYSTEM: Grossly nonfocal. [] EXTREMITIES: Lower extremities with 1+ edema bilaterally. Urinary Catheter Management: Jain: Cath Placed During This Visit: yes Urinary Catheter Date of Insertion: 06/11/23 Urinary Catheter Time of Insertion: 12:37 Data 06/12/23 04:16 06/12/23 04:16 A&P Assessment and plan (1) Acute CHF: (2) Nausea and vomiting: (3) Hypertension: (4) Bradycardia: (5) High degree atrioventricular block: Plan Patient has presented with high degree AV block (2:1) with congestive heart failure. We will proceed with a temporary pacemaker placement and will need permanent pacemaker tomorrow. Risks and benefits of the procedure been discussed. Given patient also has been having heart failure symptoms along with chest pressure, troponin elevation, we will also perform coronary angiogram. Keep n.p.o. for now Continue telemetry monitoring. IV Lasix administered. Monitor I and O's. Thank you for involving us with care of this patient. We will continue to follow. Please call with questions. Consult Attestations Medical Necessity Statement: Care expected to cross 2 midnights. Coding Level of Care Code Acute Code for [facility] Fwd Diagnoses Acute CHF I50.9 Nausea and vomiting R11.2 Hypertension I10 Bradycardia R00.1 High degree atrioventricular block I44.39
--- NOTE | 2023-06-11 14:48 | PM.HP ---
Providers/Chief Complaint Primary Care Provider: Yash Sosa DO Chief Complaint: physician sent, high bp, sob History of Present Illness 72-year-old lady with chronic pain, hypertension yesterday was seen by primary care provider and directed to go for evaluation to ER due to symptoms of CHF and bradycardia. This morning she did not take any of her medications, she did feel nauseated and had a few episodes of vomiting. In ER she is found hypertensive, blood pressure as high as 230/100, bradycardia, heart rates in the low 40s, nauseated. Chest x-ray with cardiomegaly, pulmonary vascular congestion. In ER received a dose of hydralazine, promethazine, Lasix. Telemetry with noted some dropped QRS complexes, possibly high degree heart block. Cardiology contacted. Review of Systems Const: Denies: fever(s), chills, body aches or malaise Eyes: Denies: change in vision, eye discomfort or eye redness ENMT: Denies: throat pain, oral sores or ear or mastoid pain Card: Reports: swelling of feet/ankles, dyspnea on exertion and orthopnea; Denies: chest pain or pre-syncope Resp: Denies: dyspnea, productive cough, change in phlegm color or hemoptysis GI: Reports: nausea and vomiting (Family reports episode of nausea and vomiting last week); Denies: abdominal pain, diarrhea, constipation, hematochezia or melena : Denies: flank pain, urinary frequency or hematuria Musc: Denies: back pain, joint swelling or joint redness Skin/Breast: Denies: rash or new lesions Neuro: Denies: headache(s) or confusion Medications/Allergies Home Medications Medication Instructions Recorded Confirmed Last Taken Type diphenhydramine HCl 25 mg capsule 25 mg PO Q4H PRN allergic reaction 01/09/21 06/11/23 Unknown Rx (Benadryl) #30 caps duloxetine 30 mg capsule,delayed 30 mg PO DAILY 01/09/21 06/11/23 Unknown History release epinephrine 0.3 mg/0.3 mL 0.3 mg (0.3 mL) IM Q10M PRN 01/09/21 06/11/23 Unknown Rx injection, auto-injector (EpiPen anaphylaxis #2 ea 2-Yifan) multivitamin with minerals-folic 1 tab PO BID 01/09/21 06/11/23 06/11/23 History acid 200 mcg chewable tablet (Adult Multivitamin Gummies) hydrocodone 10 mg-acetaminophen 1 - 2 tab PO Q4H PRN Pain 1 month 05/14/23 06/11/23 Unknown Rx 325 mg tablet #120 tabs losartan 100 1 tab PO DAILY #90 tabs 05/27/23 06/11/23 06/11/23 Rx mg-hydrochlorothiazide 25 mg tablet alprazolam 0.5 mg tablet 0.5 mg PO TID PRN Anxiety 06/11/23 06/11/23 Unknown History diclofenac sodium 75 mg 75 mg PO BID 06/11/23 06/11/23 06/11/23 History tablet,delayed release gabapentin 400 mg capsule 400 mg PO BEDTIME 06/11/23 06/11/23 06/10/23 History Allergies Allergy/AdvReac Type Severity Reaction Status Date / Time prednisone Allergy Mild stomach Uncoded 06/10/23 10:26 trouble, insomnia PFSH Acute PFSH: Medical History Arthritis Chronic pain Fatigue Hypertension Social History (Updated 06/11/23 @ 15:08 by Santi Diaz MD) Smoking and tobacco status: never smoked Lives independently: Yes Vitals/I&O/Wt Last Vital Signs Temp 98.7 F 06/11/23 10:49 Pulse 43 L 06/11/23 13:30 Resp 19 H 06/11/23 13:30 BP 176/62 06/11/23 13:15 Pulse Ox 96 06/11/23 13:30 Weight last 48 hrs Weight 68.039 kg Physical Exam Narrative: Accompanied by family Const: COMMON NORMALS: patient oriented x3 and alert GENERAL APPEARANCE: cooperative ORIENTATION/CONSCIOUSNESS: Yes awake OTHER: Uncomfortable, nauseated. HENMT: COMMON NORMALS: oropharynx normal Neck/C-Spine: COMMON NORMALS: no JVD Resp: COMMON NORMALS: normal respiratory effort and clear to auscultation bilaterally AUSCULTATION: clear to auscultation bilaterally Cardio: COMMON NORMALS: no JVD, regular rhythm, S1 normal heart sound present, S2 normal heart sound present and No murmurs present (Cardio) RATE: bradycardic RHYTHM: regular rhythm HEART SOUNDS: S1 normal heart sound present and S2 normal heart sound present GI: COMMON NORMALS: Normal to inspection, nondistended, normoactive bowel sounds present, Soft to palpation and non-tender PALPATION: Yes Soft to palpation Extremity: COMMON NORMALS: no joint enlargement GENERAL: Yes edema (2+) Neuro: COMMON NORMALS: patient oriented x3 and moves all extremities SENSORIUM/ORIENTATION: Yes alert Skin: COMMON NORMALS: no rashes or lesions noted GENERAL SKIN EXAM: no rashes or lesions noted Urinary Catheter Management: Jain: Cath Placed During This Visit: yes Urinary Catheter Date of Insertion: 06/11/23 Urinary Catheter Time of Insertion: 12:37 Data 06/11/23 11:17 06/11/23 11:17 A&P Assessment and plan (1) Bradycardia: Appears to have bradycardia back in January noted in the 50s,, this appears to worsen, currently in the low 40s. Hypertensive, possible compensatory response. Chemistry returned, potassium 2.6. Check magnesium. TSH noted normal. She is chest pain-free. Mild troponin elevation at baseline and 2 hours, positive delta at 22-38.19. Possible inferior WA on EKG? Does not appear to be on any darian blocking medications. With also new onset CHF, possibly secondary to bradycardia. Cardiology is consulted with consideration of possible temporary pacer, initially sinus bradycardia, but subsequently with noted dropped beats, on my interpretation on EKG appears to have possibly Mobitz 2 block, appears in 2-1 conduction. Complete troponin EKG series to assess for any ischemia. Assess TTE. (2) Hypertension: Received hydralazine. Continue losartan-HCTZ. Her family states that she did not take her morning medications. Additional assessment management of bradycardia as above, would anticipate improvement in blood pressure as well with improvement in bradycardia. Monitor blood pressures. (3) Acute CHF: Appears to have new CHF, acute decompensation, cardiomegaly, pulmonary congestive changes on chest x-ray, symptomatic CHF with dyspnea on exertion, orthopnea, lower extremity edema. Suspect may be secondary to worsening bradycardia leading to decompensation. Additional assessment with troponin EKG series to exclude ischemia. Assess TTE. TSH noted normal. Received 40 mg IV Lasix in ER. Continue Lasix IV 20 mg twice daily. Monitor BURAK. Monitor renal function. At risk of STEWART as also takes NSAIDs. At risk of electrolyte deficiencies. Follow-up chemistry. Monitor on telemetry. EKG, possible inferior WA? Cardiology is on the case as well. (4) Nausea and vomiting: Suspect may be secondary to NSAID induced gastritis she does take diclofenac. Cannot exclude hypertensive urgency as well with very high blood pressures on presentation, nausea today. Blood pressure is doing better after receiving hydralazine, Lasix. Continue optimization of blood pressure control. Received promethazine. Stop diclofenac. Protonix twice daily. Once no longer vomiting consider additional sucralfate. Consider follow-up endoscopy. For now n.p.o., sips and chips, meds. Received promethazine. Zofran as needed for nausea cautiously with QT prolongation. Monitor on telemetry. Reassess EKG. Plan Arthritis, chronic pain: Continue hydrocodone, gabapentin. Stop NSAID. Hyperbilirubinemia: Bilirubin 1.7. Other liver parameters noted normal. No abdominal pain, but does have some nausea and vomiting. Will assess for adequate ultrasound. Discussed with ER physician, ER documentation reviewed. Discussed with cardiology. Attestations Medical Necessity Statement*: Admission of over 2 midnights anticipated for assessment management of worsened bradycardia, possibly symptomatic bradycardia with new CHF, poorly controlled hypertension, nausea and vomiting with possible NSAID induced gastritis. Diagnoses Bradycardia R00.1 Hypertension I10 Acute CHF I50.9 Nausea and vomiting R11.2
--- NOTE | 2023-06-11 15:26 | USR_ITS ---
PROCEDURE INFORMATION: Exam: US Abdomen, Limited; Right Upper Quadrant Exam date and time: 06/11/2023 5:33 PM Age: 72 years old Clinical indication: Condition or disease; Gallbladder condition; Other: Hyperbilirubinemia TECHNIQUE: Imaging protocol: Real time ultrasound of the abdomen with image documentation. Limited exam focused on the right upper quadrant. COMPARISON: No relevant prior studies available. FINDINGS: Liver: The liver is slightly enlarged. No mass. Normal portal vein. Gallbladder: Gallstones are noted. Gallbladder wall is not thickened. Biliary ducts: The common bile duct is dilated measuring about 1.0 cm. The reason for this is not apparent on this exam. No dilated intrahepatic bile ducts. Pancreas: Visualized pancreas is unremarkable. Right kidney: Normal. No mass. No hydronephrosis. Other findings: Visualized portions of the aorta and inferior vena cava are normal. US/US gall bladder [id number] IMPRESSION: 1. Cholelithiasis. 2. Dilated common bile duct. The reason for this is not apparent on this exam.
--- NOTE | 2023-06-11 15:26 | USCV_ITS ---
Cecily Tyler Age: 72 Gender: F : 1950 Exam Date: 06/11/2023 22:55 Ordering Phys: Santi Diaz MD Technologist: CT Exam Location: [facility] [place] Indication: chf BP: 159 / 62 HR: Rhythm: Sinus Technical Quality: Adequate MEASUREMENTS (Male / Female) Normal Values 2D ECHO LVOT Diameter 2.0 cm LV Ejection Fraction MOD 2C 42.0 % LV Ejection Fraction 2C AL 41.1 % LA Diameter 4.8 cm Aorta at Sinotubular Diameter 2.4 cm IVC Diameter 2.9 cm M-MODE Aortic Annulus Diameter 3.2 cm LA Ao Ratio MM 1.6 MV E Point Septal Separation 0.6 cm DOPPLER AV Peak Velocity 244.0 cm/s LVOT Peak Velocity 145.0 cm/s AV Area Cont Eq vti 1.9 cm squared AV Area Cont Eq pk 1.8 cm squared MV Area PHT 4.1 cm squared Mitral E to A Ratio 2.1 MV E' Velocity 121.0 cm/s Mitral E to MV E' Ratio 25.2 Mitral E to LV E' Lateral Ratio 22.1 Mitral E to LV E' Septal Ratio 29.8 TR Peak Velocity 345.0 cm/s TR Peak Gradient 47.6 mmHg TV Peak E Velocity 122.0 cm/s Right Atrial Pressure 5.0 mmHg Pulmonary Artery Systolic Pressu 52.6 mmHg PV Peak Velocity 154.0 cm/s FINDINGS Left Ventricle Left ventricle is normal in size. Left ventricular hypertrophy seen. LV systolic function is normal with EF of 55-60 %. No regional wall motion normalities are seen. Right Ventricle Normal in size and function Right Atrium Dilated Left Atrium Dilated Mitral Valve Severe mitral annular calcification is seen. Moderate mitral stenosis with mean gradient of 7.4 mmHg. Mild mitral regurgitation Aortic Valve Structurally normal aortic valve. Moderate aortic regurgitation. Mild aortic stenosis with aortic valve area 1.91 cm squared and mean gradient of 11.4 mmHg Tricuspid Valve Moderate to severe tricuspid regurgitation. RVSP is 50 to 55 mmHg. This is consistent with moderate pulmonary hypertension. Pulmonic Valve Not well-visualized. Mild pulmonic regurgitation Pericardium Normal Aorta Normal in size IVC Dilated CONCLUSIONS Left ventricular cavity seen. LV systolic function is normal with EF of 55 to 60% Moderate mitral stenosis. Mild tricuspid regurgitation Moderate aortic regurgitation. Mild aortic stenosis. Moderate pulmonary hypertension Mild pulmonic regurgitation IVC is dilated. Mik Nolasco MD (Electronically Signed) Final Date: 12 June 2023 11:44 S
[2023-06-11] MEDS: ondansetron 2 mg/ML SDV 2 mL 4 MG IVP (16:50)
[2023-06-11] MEDS: pantoprazole 40 mg SDV IVP (16:51)
[2023-06-11] MEDS: chlorhexidine gluconate 4% Btl 118 mL 1 APPLIC TOPICAL (16:53)
--- NOTE | 2023-06-11 16:56 | ECG_ITS ---
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 Measurements Intervals [place]yman Rate: 36 P: 0 [place]: 0 QRS: 64 QRSD: 92 T: 20 QT: 468 QTc: 366 Interpretive Statements SINUS BRADYCARDIA WITH 2ND DEGREE AV BLOCK, 2:1 OR MOBITZ TYPE II POSSIBLE INFERIOR MYOCARDIAL INFARCTION , PROBABLY OLD [30 ms Q WAVE IN II/aVF] CRITICAL TEST RESULT Compared to ECG 06/11/2023 11:08:16 Myocardial infarct finding now present T-wave abnormality no longer present Electronically Signed On 06-11-2023 14:47:17 CDT by José Miguel Pichardo M.D. [id number]
[2023-06-11] MEDS: HYDROcodone-acetaminophen 10-325 mg Tablet 1 TAB PO (18:55)
[2023-06-11] MEDS: gabapentin 400 mg Capsule PO (21:25)
--- NOTE | 2023-06-11 22:35 | PC.NURSE ---
Clarified orders for temp pacemaker settings with Dr. Nolasco, verbal order received to reduce Ma to 3. Will monitor patients rhythm for inherent beats. Patient has no complaints of chest pain or SOB. Remains on 2L. Tr band reducing per protocol. Femoral sheath site unremarkable.
[2023-06-12] VITALS (94 sets, daily range): BP systolic 113–201; BP diastolic 42–85; PULSE 55–90; RESP 15–50; TEMP 36.3–37.2; O2SAT 91–99
[2023-06-12] MEDS: HYDROcodone-acetaminophen 10-325 mg Tablet 1 TAB PO ×2 (00:05→19:59)
[2023-06-12] MEDS: pantoprazole 40 mg SDV IVP ×2 (02:45→13:47)
[2023-06-12] MEDS: FUROsemide 10 mg/mL SDV 4mL 20 MG IVP ×2 (04:14→16:19)
[2023-06-12] MEDS: heparin 5,000 unit/mL INJ 1 mL 5000 UNIT SUBCUT (04:14)
[2023-06-12 04:49] LABS: Basophils % 0.4 %; Eosinophils % 0.3 %; Hematocrit 36.5 % (37.0-47.0); Hemoglobin 11.8 g/dL (11.5-15.3); Lymphocytes # 1.4 10^3/uL (0.8-4.8); Lymphocytes % 14.4 %; Mean Corpuscular HGB Conc 32.3 g/dL (30.0-36.0); Mean Corpuscular Hemoglobin 28.7 pg (28.0-34.0); Mean Corpuscular Volume 88.8 fl (81-99); Mean Platelet Volume 10.8 fL (7.4-10.4); Monocytes % 10.1 %; Neutrophils # 7.35 10^3/uL (1.8-7.7); Neutrophils % 74.5 %; Nucleated Red Blood Cells % 0 %; Platelet Count 237 10^3/cmm (130-400); Red Blood Count 4.11 10^6/uL (4.1-5.3); Red Cell Distribution Width 15.7 % (12.1-15.1); White Blood Count 9.9 10^3/uL (4.0-10.0)
[2023-06-12 05:16] LABS: Alanine Aminotransferase 10 U/L (0-33); Albumin Level 3.4 g/dL (3.5-5.2); Alkaline Phosphatase 59 U/L (35-105); Anion Gap 14.1 (5-19); Aspartate Amino Transferase 11 U/L (0-32); Blood Urea Nitrogen 16 mg/dL (8-23); Calcium 8.9 mg/dL (8.5-10.5); Carbon Dioxide 29 mmol/L (22-29); Chloride 104 mmol/L (98-107); Globulin 2.1 g/dL (1.3-4.6); Glucose 83 mg/dL (65-115); Magnesium 1.8 mg/dL (1.7-2.3); Osmolality Calculated 298 mOsm/kg (285-295); Potassium 3.1 mmol/L (3.5-5.1); Sodium 144 mmol/L (136-145); Total Bilirubin 1.4 mg/dL (0.15-1.2); Total Protein 5.5 g/dL (6.6-8.7)
--- NOTE | 2023-06-12 05:43 | PC.NURSE ---
Patient receiving Lasix without K+ replacement. Morning labs revealed k+ of 3.1 prior to last lasix admin. Hospitalist notified.
[2023-06-12] MEDS: potassium chloride ER 20 mEq Tablet 40 MEQ PO ×2 (05:50→09:33)
--- NOTE | 2023-06-12 06:13 | P.CONIM_ITS ---
Providers/Reason For Consult Consulting Physician/Specialty*: Dr. Banda/cardiothoracic surgery Reason for Consult*: Request for pacemaker implantation Requesting Physician: Dr. Nolasco Attending Physician: Santi Diaz Primary Care Provider: Yash Sosa DO History of Present Illness History of Present Illness Cecily Tyler is a 72 year old female whom I was consulted for pacemaker implantation. She is a 72-year-old female who presented yesterday to the emergency department after presenting to her primary care provider with complaints of shortness of breath and noted to be markedly bradycardic. At time of presentation she was noted to be hypertensive, evidence for CHF, and in third-degree AV heart block. She was treated with diuresis and hydralazine with improvement of her blood pressure. Dr. Nolasco was consulted from cardiology and placed a temporary pacemaker. She is currently resting in the ICU. She is continue to receive diuresis and has responded well. This morning she notes substantial improvement in her breathing. Her rhythm is intermittently paced. She has a transvenous pacemaker placed to the right groin. Review of Systems Const: Reports: fatigue; Denies: fever(s) or chills Eyes: Denies: change in vision ENMT: Denies: throat pain Card: Reports: palpitations, lightheadedness, dyspnea on exertion and or thopnea Resp: Reports: dyspnea; Denies: productive cough or hemoptysis GI: Reports: abdominal pain and nausea; Denies: hematemesis : Denies: difficulty voiding Musc: Reports: back pain and joint pain Neuro: Denies: headache(s), weakness in extremities or sensory changes Psych: Denies: anxiety or depression Medications/Allergies Home Medications Medication Instructions Recorded Confirmed Last Taken Type diphenhydramine HCl 25 mg capsule 25 mg PO Q4H PRN allergic reaction 01/09/21 06/11/23 Unknown Rx (Benadryl) #30 caps duloxetine 30 mg capsule,delayed 30 mg PO DAILY 01/09/21 06/11/23 Unknown History release epinephrine 0.3 mg/0.3 mL 0.3 mg (0.3 mL) IM Q10M PRN 01/09/21 06/11/23 Unknown Rx injection, auto-injector (EpiPen anaphylaxis #2 ea 2-Yifan) multivitamin with minerals-folic 1 tab PO BID 01/09/21 06/11/23 06/11/23 History acid 200 mcg chewable tablet (Adult Multivitamin Gummies) hydrocodone 10 mg-acetaminophen 1 - 2 tab PO Q4H PRN Pain 1 month 05/14/23 06/11/23 Unknown Rx 325 mg tablet #120 tabs losartan 100 1 tab PO DAILY #90 tabs 05/27/23 06/11/23 06/11/23 Rx mg-hydrochlorothiazide 25 mg tablet alprazolam 0.5 mg tablet 0.5 mg PO TID PRN Anxiety 06/11/23 06/11/23 Unknown History diclofenac sodium 75 mg 75 mg PO BID 06/11/23 06/11/23 06/11/23 History tablet,delayed release gabapentin 400 mg capsule 400 mg PO BEDTIME 06/11/23 06/11/23 06/10/23 History Allergies Allergy/AdvReac Type Severity Reaction Status Date / Time prednisone Allergy Mild stomach Uncoded 06/10/23 10:26 trouble, insomnia Current Medications Generic Name Dose Route Start Last Admin Trade Name Freq PRN Reason Stop Dose Admin Hydrocodone Bitart/Acetaminophen 1 tab 06/11/23 15:48 06/12/23 00:05 Hydrocodone-Acetaminophen 10-325 Mg Tablet PO 1 tab Q4H PRN Administration Pain Chlorhexidine Gluconate 1 applic 06/11/23 16:35 06/11/23 16:53 Chlorhexidine Gluconate 4% Btl 118 Ml TOPICAL 1 applic DAILY FLORESITA Administration Furosemide 20 mg 06/12/23 04:00 06/12/23 04:14 Furosemide 10 Mg/Ml Sdv 4ml IVP 20 mg BID@0400,1600 FLORESITA Administration Gabapentin 400 mg 06/11/23 21:00 06/11/23 21:25 Gabapentin 400 Mg Capsule PO 400 mg BEDTIME FLORESITA Administration Ondansetron HCl 4 mg 06/11/23 15:48 06/11/23 16:50 Ondansetron 2 Mg/Ml Sdv 2 Ml IVP 4 mg Q8H PRN Administration vomiting, or N/V if npo Pantoprazole Sodium 40 mg 06/11/23 14:30 06/12/23 02:45 Pantoprazole 40 Mg Sdv IVP 40 mg Q12H FLORESITA Administration PFSH Acute PFSH: Medical History Arthritis Chronic pain Fatigue Hypertension Social History Smoking and tobacco status: never smoked Lives independently: Yes Vitals/I&O/Wt Last Vital Signs Temp 99 F 06/12/23 00:00 Pulse 61 06/12/23 06:00 Resp 22 H 06/12/23 06:00 BP 154/65 06/12/23 04:00 Pulse Ox 97 06/12/23 06:00 O2 Del Method Nasal Cannula 06/12/23 06:00 O2 Flow Rate 2 06/12/23 06:00 06/11/23 06/11/23 06/12/23 14:59 22:59 06:59 Intake Total 244 / 244 Output Total 1650 / 1650 500 / 2150 Balance -1406 / -1406 -500 / -1906 Weight last 48 hrs Weight 158 lb Weight 150 lb Physical Exam Const: COMMON NORMALS: no acute distress, average body habitus and patient oriented x3 HENMT: COMMON NORMALS: normocephalic, atraumatic, hearing grossly normal bilaterally, external ears normal and Normal external nose present HEAD & SCALP: normocephalic and atraumatic NOSE: Normal external nose present EXTERNAL EAR: Yes external ears normal Eye: COMMON NORMALS: EOMs intact bilaterally and no scleral icterus Neck/C-Spine: COMMON NORMALS: full ROM, no lymphadenopathy and No carotid bruits Chest: COMMONS NORMALS: normal inspection of the chest and normal palpation of entire chest wall Resp: COMMON NORMALS: normal respiratory effort, No use of accessory muscles and clear to auscultation bilaterally AUSCULTATION: clear to auscultation bilaterally Cardio: COMMON NORMALS: negative for regular rate, negative for regular rhythm and negative for No murmurs present (Cardio) RATE: abnormal rate and bradycardic RHYTHM: abnormal rhythm and abnormal rhythm (Paced) HEART SOUNDS: Murmur heart sound present systolic Location: left sternal border Intensity: II/ GI: COMMON NORMALS: Normal to inspection, nondistended, normoactive bowel sounds present, Soft to palpation and non-tender PALPATION: Yes Soft to palpation Extremity: COMMON NORMALS: no calf tenderness NARRATIVE EXTREMITY EXAM: 1+ lower extremity edema Neuro: COMMON NORMALS: patient oriented x3, moves all extremities, no focal motor deficits and no sensory deficits noted Urinary Catheter Management: Jain: Cath Placed During This Visit: yes Reason for Continuing Indwelling Catheter: Accurate Measurement of Urinary Output in Critically Ill Patients Urinary Catheter Date of Insertion: 06/11/23 Urinary Catheter Time of Insertion: 12:37 Data 06/12/23 04:16 06/12/23 04:16 CXR: My impression: Presenting chest x-ray revealed some widened cardiac silhouette consistent with CHF particular enlargement of the right atrium. No vivi effusion. No pulmonary infiltrates. A&P Assessment and plan (1) Bradycardia: 72-year-old female with AV heart block with temporary pacer currently in position. I discussed with Ms. Tyler rationale to consider permanent pacemaker implantation. Details and risk of the procedure were reviewed. Risks reviewed include the possibility of , stroke, heart attack, major bleeding, infection, pneumonia, pneumothorax requiring chest tube, migration of the leads requiring need for early or delayed revision, organ failure, failure to benefit, prolonged hospital stay, pain after the procedure, need for further procedures, inability to complete the procedure, and need for long-term followup. All questions were answered. Appropriate consent has been provided for review and signature. Consult Attestations Medical Necessity Statement: Highly symptomatic AV heart block currently receiving temporary pacing Coding Level of Care Code Acute Code for [facility] Fwd Diagnoses Bradycardia R00.1
--- NOTE | 2023-06-12 07:45 | PM.PN ---
Subjective Subjective: Patient is feeling much better today. Has good urine output. Has good capture of temporary pacemaker. Plan for permanent pacemaker today. Vitals/I&O/Wt Last Vital Signs Temp 99 F 06/12/23 00:00 Pulse 61 06/12/23 06:00 Resp 22 H 06/12/23 06:00 BP 154/65 06/12/23 04:00 Pulse Ox 97 06/12/23 06:00 O2 Del Method Nasal Cannula 06/12/23 06:00 O2 Flow Rate 2 06/12/23 06:00 06/11/23 06/12/23 06/12/23 22:59 06:59 14:59 Intake Total 244 / 244 Output Total 1650 / 1650 500 / 2150 Balance -1406 / -1406 -500 / -1906 Weight last 48 hrs Weight 158 lb Weight 150 lb Physical Exam Narrative: GENERAL: Patient is alert, awake and oriented x3. [] NECK: No jugular vein distension. [] HEENT: No cyanosis. No icterus. No pallor. [] HEART: Bradycardic, grade 3/6 systolic murmur LUNGS: Bilateral crackles CENTRAL NERVOUS SYSTEM: Grossly nonfocal. [] EXTREMITIES: Lower extremities with 1+ edema bilaterally. Urinary Catheter Management: Jain: Cath Placed During This Visit: yes Reason for Continuing Indwelling Catheter: Accurate Measurement of Urinary Output in Critically Ill Patients Urinary Catheter Date of Insertion: 06/11/23 Urinary Catheter Time of Insertion: 12:37 Data 06/12/23 04:16 06/12/23 04:16 A&P Assessment and plan (1) Acute CHF: (2) Nausea and vomiting: (3) Hypertension: (4) Bradycardia: (5) High degree atrioventricular block: Plan Patient has good capture of temporary pacemaker. Plan for permanent pacemaker today. Dr. Banda consulted. Continue current medications. Telemetry monitoring. Echo shows normal LV systolic function with moderate mitral stenosis, moderate aortic regurgitation, mild . Thank you for involving us with care of this patient. We will continue to follow. Please call with questions. Attestations Medical Necessity Statement*: Care expected to cross 2 midnights. Coding Level of Care Code Acute Code for [facility] Fwd Diagnoses Acute CHF I50.9 Nausea and vomiting R11.2 Hypertension I10 Bradycardia R00.1 High degree atrioventricular block I44.39
[2023-06-12] MEDS: losartan 50 mg Tablet 100 MG PO (09:23)
[2023-06-12] MEDS: hydroCHLOROthiazide 25 mg Tablet PO (09:24)
[2023-06-12] MEDS: chlorhexidine gluconate 4% Btl 118 mL 1 APPLIC TOPICAL (09:26)
--- NOTE | 2023-06-12 09:32 | ECG_ITS ---
[facility] Test Date: 2023-06-12 Pat Name: Cecily Tyler Department: Room: [facility] Gender: Female Anodiser: : [id number] Requested By: Santi Diaz Order Number: [id number] Dana MD: Mik Nolasco M.D. Measurements Intervals [place] Rate: 60 P: 0 SC: 0 QRS: -47 QRSD: 196 T: 131 QT: 526 QTc: 526 Interpretive Statements ELECTRONIC VENTRICULAR PACEMAKER Compared to ECG 06/11/2023 13:01:24 T-wave abnormality no longer present Possible ischemia no longer present Prolonged QT interval no longer present Electronically Signed On 06-12-2023 15:17:46 CDT by Mik Nolasco M.D. [id number]
--- NOTE | 2023-06-12 13:38 | SC_ITS ---
WS: [id number] C-arm fluoroscopy for pacemaker insertion, 06/12/2023 Clinical Data: surgery Comparison: None. Findings: Dr. Albarado inserted the pacemaker leads which overlie the cardiac silhouette. Impression: Insertion of cardiac pacemaker.
--- NOTE | 2023-06-12 15:08 | ANES.PREANE2 ---
Pre-Anesthetic Assessment Height/Weight: Height 1.6 m Weight 71.668 kg Temp Pulse Resp BP Pulse Ox O2 Del Method O2 Flow Rate 97.4 F L 60 33 H 171/69 93 Nasal Cannula 2 06/12/23 12:00 06/12/23 14:00 06/12/23 13:30 06/12/23 13:30 06/12/23 13:30 06/12/23 09:39 06/12/23 09:39 Preop Diagnosis: Congestive heart failure/ 2:1 AV block Operation Date: 06/11/23 14:30 Proposed Procedures p Cardiac Catheterization(Not Applicable) - Mik Nolasco M.D Operation Date: 06/12/23 14:30 Proposed Procedures p Pacemaker Insertion(Not Applicable) - Emeterio Banda MD Familial anesthetic complications: none Was Beta Eliza taken within 24 hours: N/A Was Clonidine taken within 24 hours: N/A Social No alcohol and No tobacco Exam alert, oriented x 3, clear to auscultation bilaterally and regular rate & rhythm (transvenous pacer) Airway Submandibular: within normal limits Cervical ROM: within normal limits Mallampati: Class I Dentition: false Pulmonary Exertional Dyspnea and Shortness of Breath CV/HEM Arrythmia, Hypertension and Murmur CONCLUSIONS ?Left ventricular cavity seen.? LV systolic function is normal ?with EF of 55 to 60% ?Moderate mitral stenosis. ?Mild tricuspid regurgitation ?Moderate aortic regurgitation.? Mild aortic stenosis. ?Moderate pulmonary hypertension ?Mild pulmonic regurgitation ?IVC is dilated. ?Mik Nolasco MD ?(Electronically Signed) ?Final Date:? ? ? 12 June 2023 Neuropsych Anxiety Anesthetic Plan ASA status: 4 Anesthesia: Choice Medications/Allergies Home Medications Medication Instructions Recorded Confirmed Last Taken Type diphenhydramine HCl 25 mg capsule 25 mg PO Q4H PRN allergic reaction 01/09/21 06/11/23 Unknown Rx (Benadryl) #30 caps duloxetine 30 mg capsule,delayed 30 mg PO DAILY 01/09/21 06/11/23 Unknown History release epinephrine 0.3 mg/0.3 mL 0.3 mg (0.3 mL) IM Q10M PRN 01/09/21 06/11/23 Unknown Rx injection, auto-injector (EpiPen anaphylaxis #2 ea 2-Yifan) multivitamin with minerals-folic 1 tab PO BID 01/09/21 06/11/23 06/11/23 History acid 200 mcg chewable tablet (Adult Multivitamin Gummies) hydrocodone 10 mg-acetaminophen 1 - 2 tab PO Q4H PRN Pain 1 month 05/14/23 06/11/23 Unknown Rx 325 mg tablet #120 tabs losartan 100 1 tab PO DAILY #90 tabs 05/27/23 06/11/23 06/11/23 Rx mg-hydrochlorothiazide 25 mg tablet alprazolam 0.5 mg tablet 0.5 mg PO TID PRN Anxiety 06/11/23 06/11/23 Unknown History diclofenac sodium 75 mg 75 mg PO BID 06/11/23 06/11/23 06/11/23 History tablet,delayed release gabapentin 400 mg capsule 400 mg PO BEDTIME 06/11/23 06/11/23 06/10/23 History Allergies Allergy/AdvReac Type Severity Reaction Status Date / Time prednisone Allergy Mild stomach Uncoded 06/10/23 10:26 trouble, insomnia Current Medications Generic Name Dose Route Start Last Admin Trade Name Freq PRN Reason Stop Dose Admin Hydrocodone Bitart/Acetaminophen 1 tab 06/11/23 15:48 06/12/23 00:05 Hydrocodone-Acetaminophen 10-325 Mg Tablet PO 1 tab Q4H PRN Administration Pain Chlorhexidine Gluconate 1 applic 06/11/23 16:35 06/12/23 09:26 Chlorhexidine Gluconate 4% Btl 118 Ml TOPICAL 1 applic DAILY FLORESITA Administration Furosemide 20 mg 06/12/23 04:00 06/12/23 04:14 Furosemide 10 Mg/Ml Sdv 4ml IVP 20 mg BID@0400,1600 FLORESITA Administration Gabapentin 400 mg 06/11/23 21:00 06/11/23 21:25 Gabapentin 400 Mg Capsule PO 400 mg BEDTIME FLORESITA Administration Hydrochlorothiazide 25 mg 06/12/23 09:00 06/12/23 09:24 Hydrochlorothiazide 25 Mg Tablet PO 25 mg DAILY FLORESITA Administration Losartan Potassium 100 mg 06/12/23 09:00 06/12/23 09:23 Losartan 50 Mg Tablet PO 100 mg DAILY FLORESITA Administration Ondansetron HCl 4 mg 06/11/23 15:48 06/11/23 16:50 Ondansetron 2 Mg/Ml Sdv 2 Ml IVP 4 mg Q8H PRN Administration vomiting, or N/V if npo Pantoprazole Sodium 40 mg 06/11/23 14:30 06/12/23 13:47 Pantoprazole 40 Mg Sdv IVP 40 mg Q12H FLORESITA Administration PFSH Anesthesia Medical History Arthritis Chronic pain Fatigue Hypertension Social History Smoking and tobacco status: never smoked Lives independently: Yes Data Anesthesia 06/12/23 04:16 06/12/23 04:16 Short CBC 06/11/23 06/12/23 Range/Units 11:17 04:16 WBC 8.2 9.9 (4.0-10.0) 10^3/uL Hgb 13.4 11.8 (11.5-15.3) g/dL Hct 42.7 36.5 L (37.0-47.0) % MCV 91.0 88.8 (81-99) fl Plt Count 281 237 (130-400) 10^3/cmm Neut % (Auto) 80.3 74.5 % Neut # (Auto) 6.61 7.35 (1.8-7.7) 10^3/uL BMP 06/11/23 06/12/23 11:17 04:16 Sodium 141 144 Potassium 3.6 3.1 L Chloride 103 104 Carbon Dioxide 23 29 BUN 14 16 Creatinine 0.8 1.1 H Glucose 106 83 Calcium 9.7 8.9 Cardiac Enzymes 06/11/23 06/11/23 06/11/23 Range/Units 11:17 11:17 13:28 Troponin T Baseline 22 H (0-10) ng/L Troponin T 120 Minute 38.19 H (0-10) ng/L Delta Troponin T 16.19 H* (0-10) ABS# NT-Pro-B Natriuret Pep 6747 H (0-125) pg/mL Liver Function 06/11/23 06/12/23 06/12/23 Range/Units 11:17 04:16 04:16 Total Bilirubin 1.7 H 1.4 H (0.15-1.2) mg/dL Direct Bilirubin 0.50 H (0.00-0.30) mg/dL AST 14 11 (0-32) U/L ALT 15 10 (0-33) U/L Alkaline Phosphatase 77 59 (35-105) U/L Albumin 4.1 3.4 L (3.5-5.2) g/dL Cardiac Studies: Echocardiogram 06/11/23
--- NOTE | 2023-06-12 16:09 | PC.NURSE ---
1600 Temp pacer in right groin secured in place as has been since 0700. Patient showing paced rythem. Raymundo well, no c/o's.
--- NOTE | 2023-06-12 16:25 | PC.NURSE ---
1620 OR kale here and took patient via bed to OR for perm pacer. at bedside.
[2023-06-12] MEDS: ceFAZolin 2,000 MG in sodium chloride 0.9% (plus) 50 ML 100 MG IV (16:36)
[2023-06-12] MEDS: ceFAZolin 1,000 mg SDV 1000 MG IRRIGATION (16:57)
[2023-06-12] MEDS: lidocaine 1% INJ 10 mL (per mL) 20 ML XX (17:58)
--- NOTE | 2023-06-12 17:59 | PM.OP ---
Operative Report Date of procedure: June 12, 2023 Pre-op diagnosis: Preop Diagnosis Congestive heart failure/ 2:1 AV block Post-op diagnosis: same Procedure done: Dual-chamber pacemaker implantation Implants: [employer] generator Atrial and ventricular leads Pathology: none sent Surgeon: Emeterio Banda Anesthesia: MAC and Local Estimated blood loss (mL): 20 Complications: None Condition: stable Disposition: ICU Brief History: Ms. Tyler is a pleasant 72-year-old female presented to the emergency department with congestive heart failure and profound bradycardia and found to be in second-degree AV heart block. Heart rate failed to respond to medical management and temporary pacing was placed by Dr. Nolasco. I was consulted to consider permanent pacemaker implantation. Rationale for this was carefully discussed with Ms. Tyler. She underwent medical management of her congestive failure with diuresis and had marked improvement by early this morning. After discussions concerning rationale, details and risk of pacemaker implantation, she wished to proceed. Proper consents have been provided for review and signature. Procedure: Procedure: Ms. Tyler was taken to the OR suite and placed in the supine position over a shoulder roll. She received conscious sedation with continuous anesthesia monitoring by. Her entire chest was sterilely prepped and draped. 1% lidocaine was infiltrated in the left subclavicular region. While in Trendelenburg position, utilizing modified seldinger technique, 2 guidewires were placed in the left subclavian vein. This was confirmed in position by fluoroscopy. Next, after infiltration with lidocaine, a subcutaneous pocket was created beginning from the exit point of the guidewire and extending laterally and inferiorly. Cautery was utilized to create the pocket just above the pectoralis musculature. Hemostasis was confirmed. An antibiotic-soaked sponge was placed in the wound. A dilator and tear-away sheath was placed over the first guidewire and advanced under fluoroscopy. Guidewire and dilator were removed. Next using a combination of curved and straight stylettes, the right ventricular lead was placed in position by fluoroscopy. The distal screw was extended. Interrogation was then performed confirming appropriate parameters. The tear-away sheath was then removed and the ventricular lead was sewn to the floor of the subcutaneous pocket. In a similar fashion dilator and tear-away sheath was placed over the 2nd guide wire and advanced under fluoroscopy. Guidewire and dilator were removed. Straight and curved stylettes were used to position the right atrial lead with fluoroscopy. Distal screw was extended. Interrogation was then performed. Tear-away sheath was then removed. Atrial lead was secured to the floor of the subcutaneous pocket. Pocket was irrigated with antibiotic solution and hemostasis again confirmed. Pacing generator was brought into the field, and after confirmation of hemostasis in the subcutaneous pocket, the leads were connected to the generator with appropriate capture. The entire system was interrogated by fluoroscopy. Leads and generator were secured in the pocket. Sponge and needle count was correct. The wound was then closed in 2 layers of 3-0 Vicryl suture. Skin was reapproximated in a subcuticular manner with 4-0 Monocryl suture. A pressure dressing was applied. The left arm was placed in a sling. Ms. Tyler had equal breath sounds bilaterally. She was then transferred back to the intensive care unit, where chest x-ray is currently pending. Following are the specifics of this system: Right ventricular lead is 52 cm and model 5076. Serial number [id number] Right atrial lead is 45 cm and is model 5076. Serial number [id number]. Ventricular lead had sensing of 9.2 mV(off of temporarily paced beat) with an impedance of 665 ohms. Threshold was 0.5 V Atrial lead had sensing of 2.2 mV with an impedance of 494 ohms. Threshold was 0.9 V. [employer] generator: Model # [id number] Serial #[id number] Pacing mode: DDDR Lower rate 60 upper rate 130
--- NOTE | 2023-06-12 18:34 | PC.NURSE ---
1816 Patient returned from OR after placement of perm pacemaker in left subclavian area. Dressing d/i. Right groin had temp pacer removed in surgery and a pressure drgs in place with no bruising, edema or drainage noted. Patient awake crying and talking about son. Dr. Banda here, verbal med order for elevated b/p. ORder sent to pharmacy. called, no answer, patient ask me to call her daughter. Did so, informed of out of surgery and did well.
[2023-06-12] MEDS: hyDRALAzine 20 mg/mL INJ 1 mL 10 MG IVP (18:43)
--- NOTE | 2023-06-12 18:58 | XRR_ITS ---
PROCEDURE INFORMATION: Exam: XR Chest Exam date and time: 06/12/2023 7:23 PM Age: 72 years old Clinical indication: Device placement; Other: Pacemaker; Prior surgery; Surgery date: Post-operative (0-2 days); Additional info: Post op perm pacemaker TECHNIQUE: Imaging protocol: Radiologic exam of the chest. Views: 1 view. COMPARISON: CR XR chest 1V portable [id number] 06/11/2023 11:03 AM FINDINGS: Tubes, catheters and devices: There is a normal appearing dual lead cardiac pacemaker. Lungs: Unremarkable. No consolidation. Pleural spaces: Unremarkable. No pleural effusion. No pneumothorax. Heart/Mediastinum: Stable mild cardiomegaly. Bones/joints: Unremarkable. XR/XR chest 1V portable [id number] IMPRESSION: 1. There is a normal appearing dual lead cardiac pacemaker. 2. No acute cardiopulmonary abnormality.
[2023-06-12] MEDS: hyDRALAzine 20 mg/mL INJ 1 mL 5 MG IVP ×2 (19:02→20:04)
[2023-06-12] MEDS: morphine 4 mg/mL SDV 1 mL 2 MG IVP ×2 (19:36→20:35)
[2023-06-12] MEDS: ondansetron 2 mg/ML SDV 2 mL 4 MG IVP (19:48)
[2023-06-12] MEDS: amlodipine 5 mg Tablet PO (19:59)
[2023-06-12] MEDS: diphenhydrAMINE 25 mg Capsule PO (19:59)
--- NOTE | 2023-06-12 20:19 | PC.NURSE ---
High BP: Dr. Nolasco @bedside to see pt @approximately 1900. Elevated BP. New verbal order for Hydralazine 5mg IVP in 15 minutes if BP remains elevated and 5mg PO Amlodpine NOW. System error prevented giving medications on time. Dr. Nolasco notified around 1920. Medications re-entered by Gustavo in pharmacy due to system error. See MAR for medication administration.
[2023-06-12] MEDS: LORazepam 2 mg/mL INJ 1 mL 0.5 MG IVP (20:33)
[2023-06-12] MEDS: gabapentin 400 mg Capsule PO (20:34)
[2023-06-13] VITALS (48 sets, daily range): BP systolic 123–179; BP diastolic 49–102; PULSE 60–95; RESP 18–40; TEMP 36.6–37.1; O2SAT 90–97
[2023-06-13] MEDS: ceFAZolin 2,000 MG in sodium chloride 0.9% (plus) 50 ML 100 MG IV ×3 (00:07→15:51)
--- NOTE | 2023-06-13 00:47 | P.PN_ITS ---
Subjective Subjective: She reports she is doing much better today. No chest pain or pressure. No abdominal pain, no nausea or vomiting. Discussed with her and her son regarding abnormality of T. bili, ultrasound findings. Discussed cannot 100% rule out choledocholithiasis, of which she might be at risk, at risk of complications, unable to undergo MRCP. She is asymptomatic, however, and otherwise without signs of sepsis or infection. They are agreeable to reassess liver parameters, reassess condition. Vitals/I&O/Wt Last Vital Signs Temp 98.7 F 06/13/23 00:00 Pulse 65 06/13/23 00:00 Resp 20 H 06/13/23 00:00 BP 143/51 06/13/23 00:00 Pulse Ox 96 06/13/23 00:00 O2 Del Method Nasal Cannula 06/13/23 00:00 O2 Flow Rate 2 06/13/23 00:00 06/12/23 06/12/23 06/13/23 14:59 22:59 06:59 Intake Total 300 / 300 Output Total 950 / 950 Balance -650 / -650 Weight last 48 hrs Weight 71.668 kg Weight 68.039 kg Physical Exam Narrative: Accompanied by family Const: COMMON NORMALS: patient oriented x3 and alert GENERAL APPEARANCE: cooperative ORIENTATION/CONSCIOUSNESS: Yes awake OTHER: Appears comfortable. HENMT: COMMON NORMALS: oropharynx normal Neck/C-Spine: COMMON NORMALS: no JVD Resp: COMMON NORMALS: normal respiratory effort and clear to auscultation bilaterally AUSCULTATION: clear to auscultation bilaterally Cardio: COMMON NORMALS: no JVD, regular rhythm, S1 normal heart sound present, S2 normal heart sound present and No murmurs present (Cardio) RATE: bradycardic RHYTHM: regular rhythm HEART SOUNDS: S1 normal heart sound present and S2 normal heart sound present GI: COMMON NORMALS: Normal to inspection, nondistended, normoactive bowel sounds present, Soft to palpation and non-tender PALPATION: Yes Soft to palpation Extremity: COMMON NORMALS: no joint enlargement GENERAL: Yes edema (2+) Neuro: COMMON NORMALS: patient oriented x3 and moves all extremities SENSORIUM/ORIENTATION: Yes alert Skin: COMMON NORMALS: no rashes or lesions noted GENERAL SKIN EXAM: no rashes or lesions noted Urinary Catheter Management: Jain: Cath Placed During This Visit: yes Reason for Continuing Indwelling Catheter: Accurate Measurement of Urinary Out put in Critically Ill Patients Urinary Catheter Date of Insertion: 06/11/23 Urinary Catheter Time of Insertion: 12:37 Data 06/12/23 04:16 06/12/23 04:16 A&P Assessment and plan (1) Bradycardia: Plans for PPM. Temporary pacemaker noted functioning well In the treatment of potentially life-threatening bradycardia with decompensated CHF, severe hypertensive response with hypertensive urgency. No longer bradycardic with paced rhythm, hypertension doing much better. Symptomatically feels much better. CT surgery documentation appreciated. Follow-up chest x-ray noted. Continue telemetry monitoring. Post PPM care. She states she is well aware of having a murmur. TTE noted with normal EF, moderate MVS, mild TVR, moderate AVR. Mild AVS. Moderate pulmonary hypertension. Mild PVR. IVC dilated. (2) Hypertension: Doing much better with now resolved bradycardia. Continue losartan-HCTZ. Her family states that she did not take her morning medications. Additional assessment management of bradycardia as above, would anticipate improvement in blood pressure as well with improvement in bradycardia. Monitor blood pressures. (3) Acute CHF: With significant improvement in symptoms with improvement in bradycardia, hypertension. Continue Lasix. Continue to monitor BURAK. In negative balance - 1.1 L. Noted some slight worsening in renal function, BUN 16, creatinine 1.1. Reassess renal function. Magnesium noted 1.8. Potassium 3.1, given replacement. Follow-up magnesium. Follow-up chemistry. Coronary angiography did not reveal significant stenosis. TTE as above. (4) Nausea and vomiting: Resolved. Discussed again to discontinue NSAIDs. Continue PPI. Continue to optimize hypertension control. Discussed with them to follow-up with PCP for consideration of additional ablation by endoscopy once out of acute illness. Consideration of testing for H. pylori. Antiemetic as needed. Plan Arthritis, chronic pain: Continue hydrocodone, gabapentin. Stop NSAID. Hyperbilirubinemia: Noted hyperbilirubinemia with improvement down to 1.4. Ultrasound noted, cholelithiasis, CBD dilation. Discussed cannot 100% exclude choledocholithiasis, no signs of cholecystitis, cholangitis. No signs of sepsis or infection. Negative Gee. No abdominal pain, no further nausea. Discussed we cannot obtain MRCP. They are agreeable to continue reassessment, follow-up liver parameters, reassess symptoms. Follow-up outpatient with consideration of repeat ultrasound, follow-up for cholelithiasis. Discussed with case management. Attestations Medical Necessity Statement*: Continue admission/management of symptomatic bradycardia, uncontrolled hypertension, status post PPM, treatment of acutely decompensated CHF, assessment of hyperbilirubinemia. Diagnoses Bradycardia R00.1 Hypertension I10 Acute CHF I50.9 Nausea and vomiting R11.2
[2023-06-13] MEDS: pantoprazole 40 mg SDV IVP ×2 (02:47→14:28)
[2023-06-13] MEDS: morphine 4 mg/mL SDV 1 mL 2 MG IVP (02:54)
[2023-06-13] MEDS: HYDROcodone-acetaminophen 10-325 mg Tablet 1 TAB PO ×3 (03:19→16:46)
[2023-06-13 04:20] LABS: Basophils % 0.3 %; Eosinophils % 0.1 %; Hematocrit 43.1 % (37.0-47.0); Hemoglobin 13.6 g/dL (11.5-15.3); Lymphocytes # 1.1 10^3/uL (0.8-4.8); Mean Corpuscular HGB Conc 31.6 g/dL (30.0-36.0); Mean Corpuscular Hemoglobin 28.1 pg (28.0-34.0); Mean Platelet Volume 10.9 fL (7.4-10.4); Monocytes # 1.1 10^3/uL (0.2-0.9); Monocytes % 7.7 %; Neutrophils # 11.72 10^3/uL (1.8-7.7); Neutrophils % 83.5 %; Nucleated Red Blood Cells % 0 %; Platelet Count 242 10^3/cmm (130-400); Red Blood Count 4.84 10^6/uL (4.1-5.3); Red Cell Distribution Width 15.5 % (12.1-15.1)
[2023-06-13 04:45] LABS: Alanine Aminotransferase 10 U/L (0-33); Alkaline Phosphatase 73 U/L (35-105); Anion Gap 16.7 (5-19); Aspartate Amino Transferase 22 U/L (0-32); Blood Urea Nitrogen 17 mg/dL (8-23); Calcium 9.5 mg/dL (8.5-10.5); Carbon Dioxide 32 mmol/L (22-29); Chloride 98 mmol/L (98-107); Globulin 2.8 g/dL (1.3-4.6); Glucose 100 mg/dL (65-115); Osmolality Calculated 298 mOsm/kg (285-295); Potassium 3.7 mmol/L (3.5-5.1); Sodium 143 mmol/L (136-145); Total Bilirubin 1.1 mg/dL (0.15-1.2); Total Protein 6.8 g/dL (6.6-8.7)
[2023-06-13] MEDS: FUROsemide 10 mg/mL SDV 4mL 20 MG IVP ×2 (04:54→15:07)
--- NOTE | 2023-06-13 06:02 | P.PN_ITS ---
Subjective Subjective: Postop day #1 status post dual-lead pacemaker implantation. Ms. Tyler stated she rested well overnight. She has no concerns this morning. Outer compressive dressing was removed. Inner dressing is clean, dry, and intact. There is mild ecchymosis though no evidence for substantial fluid collection. Monitor reveals paced rhythm at 60 bpm. Nurses report no concerns overnight. Morning pacemaker interrogation is pending. Vitals/I&O/Wt Last Vital Signs Temp 98.7 F 06/13/23 00:00 Pulse 88 06/13/23 05:47 Resp 25 H 06/13/23 04:00 BP 178/73 06/13/23 03:30 Pulse Ox 94 06/13/23 04:00 O2 Del Method Nasal Cannula 06/13/23 04:00 O2 Flow Rate 2 06/13/23 04:00 06/12/23 06/12/23 06/13/23 14:59 22:59 06:59 Intake Total 300 / 300 50 / 350 Output Total 950 / 950 1500 / 2450 Balance -650 / -650 -1450 / -2100 Weight last 48 hrs Weight 158 lb Weight 150 lb Physical Exam 2 Chest: OTHER: Surgical site is clean, dry, and intact. There is mild ecchymosis. There is no evidence for subcutaneous fluid collection. Inner dressing was left in position. Urinary Catheter Management: Jain: Cath Placed During This Visit: yes Reason for Continuing Indwelling Catheter: Accurate Measurement of Urinary Output in Critically Ill Patients Urinary Catheter Date of Insertion: 06/11/23 Urinary Catheter Time of Insertion: 12:37 Data 06/13/23 03:50 06/13/23 03:50 A&P Assessment and plan (1) Status post placement of cardiac pacemaker: Postop day #1 status post dual-lead pacemaker implantation. Left arm immobilizer was removed. Patient may move left arm without reaching high above head or to extreme positions. Upon discharge, patient may follow-up [facility] in 1 week. Activity limitations have been placed on discharge instructions. Attestations Medical Necessity Statement*: Status post dual-lead pacemaker implantation secondary to AV heart block. Coding Level of Care Code Acute Code for Chg Fwd Diagnoses Status post placement of cardiac pacemaker Z95.0
--- NOTE | 2023-06-13 06:13 | PC.NURSE ---
Dr. Banda @bedside @approximately 0605. New order to use [employer] interrogator. Completed @0610.
[2023-06-13] MEDS: losartan 50 mg Tablet 100 MG PO (07:58)
[2023-06-13] MEDS: hydroCHLOROthiazide 25 mg Tablet PO (07:58)
--- NOTE | 2023-06-13 08:31 | ANE.PACU2 ---
Inpatient post-anesthesia follow up: Airway intact: Yes Vital signs: Temperature 97.8 F Pulse Rate 95 Respiratory Rate 28 Blood Pressure 135/92 Pulse Oximetry 95 Oxygen Delivery Me thod [ Nasal Cannula Current Rate & Del saurabh] Oxygen Delivery Me thod Nasal Cannula Oxygen Flow Rate [ Current Rate 2 & Delivery] Oxygen Flow Rate 2 Fraction of Inspir ed Oxygen Hydration adequate: Yes Nausea and vomiting: No Pain level: 2 Mental status: Baseline Additional Comments: Up eating breakfast.
--- NOTE | 2023-06-13 11:13 | P.PN_ITS ---
Subjective Subjective: She underwent dual chamber PPM placement yesterday. Medications: Reviewed: Yes Vitals/I&O/Wt Last Vital Signs Temp 97.8 F 06/13/23 06:00 Pulse 95 06/13/23 08:00 Resp 28 H 06/13/23 08:00 BP 135/92 06/13/23 08:00 Pulse Ox 95 06/13/23 08:00 O2 Del Method Nasal Cannula 06/13/23 07:52 O2 Flow Rate 2 06/13/23 07:52 06/12/23 06/13/23 06/13/23 22:59 06:59 14:59 Intake Total 300 / 300 50 / 350 400 / 400 Output Total 950 / 950 1500 / 2450 Balance -650 / -650 -1450 / -2100 400 / 400 Weight last 48 hrs Weight 160 lb 4.8 oz Weight 158 lb Physical Exam Narrative: GENERAL: Averagely built and averagely nourished in no acute distress HEENT: No pallor or icterus. NECK: central trachea, No JVD. No carotid bruit. CARDIOVASCULAR SYSTEM: S1-S2 regular. No murmur rubs or gallops. RESPIRATORY SYSTEM: Chest clear to auscultation. No wheezes rhonchi or rubs heard. No use of accessory muscles. Left upper chest PPM dressing in place. Mild bruising noted. ABDOMEN: Soft, nontender and nondistended. Normal bowel sounds present. EXTREMITIES: No cyanosis or edema. No signs of chronic venous insufficiency. SPECIAL SERVICES COORDINATOR: Patient is alert oriented ?3. No focal neurological deficits. Urinary Catheter Management: Jain: Cath Placed During This Visit: yes Reason for Continuing Indwelling Catheter: Accurate Measurement of Urinary Output in Critically Ill Patients Urinary Catheter Date of Insertion: 06/11/23 Urinary Catheter Time of Insertion: 12:37 Data 06/13/23 03:50 06/13/23 03:50 A&P Assessment and plan (1) Status post placement of cardiac pacemaker: Device normal functioning f/u with [facility] in 1 week EKG and CXR reviewed (2) High degree atrioventricular block: (3) Acute CHF: appears euvolemic on exam -may use lasix PRN at home (4) Hypertension: May be discharged on losartan and HCTZ and lasix prn BP/HR log x 2 weeks and changes based on that Plan Moderate MS Moderate AI Mild Thank you for allowing me to participate in patient's care. Please feel free to call with questions or concerns. Attestations Medical Necessity Statement*: stable to be discharge Coding Level of Care Code 23254 Diagnoses Status post placement of cardiac pacemaker Z95.0 High degree atrioventricular block I44.39 Acute CHF I50.9 Hypertension I10
--- NOTE | 2023-06-13 14:55 | PM.DCS ---
Discharge Providers Date of Admission: 06/11/23 15:48 Date of Discharge: June 13, 2023 Attending Provider at Admission: Santi Diaz Attending Provider at Discharge: Santi Diaz Primary Care Provider: Yash Sosa DO Diagnoses at Discharge Discharge Diagnosis (1) Status post placement of cardiac pacemaker: Status: Acute Reason for Visit Reason for Visit: physician sent, high bp, sob Hospital Course Hospital Course 80-year-old lady with history of hypertension,Pleasant 60 old gentleman with recurrent skin infections in the past, but denies history of MRSA, denies history of diabetes, smoking addiction, had a small pimple-like lesion on the upper neck/under left side chin, which she thought may have been an ingrown hair and manipulated, within 2 days the lesion increased in size, with welling, surrounding swelling, erythema, has been having some chills. Did not measure a fever. Follow-up with urgent care today, and was referred for assessment to ER. In ER CT scan obtained without suggestion of an abscess. Observation requested due to rapid increase in size of the area. Blood culture was collected., Arthritis, chronic pain, was admitted for assessment management after being sent over from primary provider's office due to elevated blood pressure and slow heart rate, in ER blood pressure as high as 230/100, bradycardia low 40s, with new decompensated congestive heart failure, later identified as diastolic, with new hypoxia, oxygen requirement, congestive changes on imaging, mild cardiomegaly, dyspnea on exertion, orthopnea, lower extremity edema, on presentation also with nausea and vomiting suspected NSAID induced gastritis, versus possibly hypertensive emergency, hypertension likely compensatory sponsor with worsened bradycardia, with resultant decompensated CHF, additionally takes NSAIDs at home, possible NSAID induced gastritis, additionally hyperbilirubinemia. Treated with IV hydralazine for hypertensive urgency, received Lasix, was assessed by cardiology, with noted positive troponin delta, was taken for further assessment and placement of temporary pacemaker, underwent assessment by angiography which did not reveal significant stenosis, temporary pacemaker placed with resolution of bradycardia with significant improvement in blood pressure, improving heart failure symptoms. Eventually weaned down on oxygen support to room air at rest, but in the low 90s, home O2 evaluation obtained prior to discharge is likely may need oxygen with exertion. TTE which noted grade 2 diastolic dysfunction, noted moderate mitral stenosis, moderate aortic regurgitation, as well as noted pulmonary hypertension. Needs to continue optimization of blood pressure control. We will continue on losartan, HCTZ. Discontinue diclofenac. Nausea and vomiting proved with PPI. Right upper quadrant ultrasound obtained and noted to have cholelithiasis, CBD dilation noted with unclear cause, discussed with her and family could not entirely exclude choledocholithiasis, could not obtain MRCP, although nausea and vomiting had resolved, had no abdominal pain, otherwise no suggestion of cholecystitis or cholangitis. T. bili elevation suspected secondary to decompensated congestive heart failure. However, please follow-up liver parameters, consider repeat hepatobiliary imaging, follow-up for resolution of CBD dilation. She is asked to maintain low-cholesterol diet. Avoid NSAIDs. Once recovered from acute condition consider referral for endoscopic evaluation due to dyspepsia to rule out malignancy or other concerning etiology, assessment for H. pylori. Underwent uneventful placement of PPM on 06/12. He is asked to follow-up for reassessment in heart care. Physical Exam Const: COMMON NORMALS: patient oriented x3 and alert GENERAL APPEARANCE: cooperative ORIENTATION/CONSCIOUSNESS: Yes awake OTHER: Comfortable, pleasant, in good spirits. Denies pain or discomfort. No nausea. No abdominal pain or discomfort. HENMT: COMMON NORMALS: oropharynx normal Neck/C-Spine: COMMON NORMALS: no JVD Chest: OTHER: PPM Resp: COMMON NORMALS: normal respiratory effort and clear to auscultation bilaterally AUSCULTATION: clear to auscultation bilaterally Cardio: COMMON NORMALS: no JVD, regular rhythm, S1 normal heart sound present, S2 normal heart sound present and No murmurs present (Cardio) RATE: bradycardic RHYTHM: regular rhythm HEART SOUNDS: S1 normal heart sound present and S2 normal heart sound present GI: COMMON NORMALS: Normal to inspection, nondistended, normoactive bowel sounds present, Soft to palpation and non-tender PALPATION: Yes Soft to palpation Extremity: COMMON NORMALS: no joint enlargement GENERAL: Yes edema (Trace) Neuro: COMMON NORMALS: patient oriented x3 and moves all extremities SENSORIUM/ORIENTATION: Yes alert Skin: COMMON NORMALS: no rashes or lesions noted GENERAL SKIN EXAM: no rashes or lesions noted Urinary Catheter Management: Jain: Cath Placed During This Visit: yes Reason for Continuing Indwelling Catheter: Accurate Measurement of Urinary Output in Critically Ill Patients Urinary Catheter Date of Insertion: 06/11/23 Urinary Catheter Time of Insertion: 12:37 Discharge Data Studies Completed and Pending Completed Studies During Hospitalization Category Date Time Status CXRP [XR chest 1V portable [id number]] Stat Exams 06/12/23 18:58 Completed XR chest 1V portable [id number] Stat Exams 06/11/23 10:56 Completed CV. 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 Cholelithiasis. 2. Dilated common bile duct. The reason for this is not apparent on this exam. Chest X-Ray 06/12/23 18:58 IMPRESSION: 1. There is a normal appearing dual lead cardiac pacemaker. 2. No acute cardiopulmonary abnormality. Laboratory Results WBC 14.0 10^3/uL (4.0-10.0) H 06/13/23 03:50 RBC 4.84 10^6/uL (4.1-5.3) 06/13/23 03:50 Hgb 13.6 g/dL (11.5-15.3) 06/13/23 03:50 Hct 43.1 % (37.0-47.0) 06/13/23 03:50 MCV 89.0 fl (81-99) 06/13/23 03:50 MCH 28.1 pg (28.0-34.0) 06/13/23 03:50 MCHC 31.6 g/dL (30.0-36.0) 06/13/23 03:50 RDW 15.5 % (12.1-15.1) H 06/13/23 03:50 Plt Count 242 10^3/cmm (130-400) 06/13/23 03:50 MPV 10.9 fL (7.4-10.4) H 06/13/23 03:50 Neut % (Auto) 83.5 % 06/13/23 03:50 Lymph % (Auto) 8.0 % 06/13/23 03:50 [place] % (Auto) 7.7 % 06/13/23 03:50 Eos % (Auto) 0.1 % 06/13/23 03:50 Baso % (Auto) 0.3 % 06/13/23 03:50 Neut # (Auto) 11.72 10^3/uL (1.8-7.7) H 06/13/23 03:50 Lymph # (Auto) 1.1 10^3/uL (0.8-4.8) 06/13/23 03:50 [place] # (Auto) 1.1 10^3/uL (0.2-0.9) H 06/13/23 03:50 Eos # (Auto) 0.0 10^3/uL (0.0-0.8) 06/13/23 03:50 Baso # (Auto) 0.0 10^3/uL (0.0-0.1) 06/13/23 03:50 Nucleated RBC % (auto) 0 % 06/13/23 03:50 Nucleated RBCs # 0.0 /100WBC 06/13/23 03:50 Sodium 143 mmol/L (136-145) 06/13/23 03:50 Potassium 3.7 mmol/L (3.5-5.1) 06/13/23 03:50 Chloride 98 mmol/L (98-107) 06/13/23 03:50 Carbon Dioxide 32 mmol/L (22-29) H 06/13/23 03:50 Anion Gap 16.7 (5-19) 06/13/23 03:50 BUN 17 mg/dL (8-23) 06/13/23 03:50 Creatinine 1.0 mg/dL (0.5-0.9) H 06/13/23 03:50 GFR Calculation Not Reportable 06/13/23 03:50 Glucose 100 mg/dL (65-115) 06/13/23 03:50 Calculated Osmolality 298 mOsm/kg (285-295) H 06/13/23 03:50 Calcium 9.5 mg/dL (8.5-10.5) 06/13/23 03:50 Magnesium 1.8 mg/dL (1.7-2.3) 06/12/23 04:16 Total Bilirubin 1.1 mg/dL (0.15-1.2) 06/13/23 03:50 Direct Bilirubin 0.50 mg/dL (0.00-0.30) H 06/12/23 04:16 AST 22 U/L (0-32) 06/13/23 03:50 ALT 10 U/L (0-33) 06/13/23 03:50 Alkaline Phosphatase 73 U/L (35-105) 06/13/23 03:50 Troponin T Baseline 22 ng/L (0-10) H 06/11/23 11:17 Troponin T 120 Minute 38.19 ng/L (0-10) H 06/11/23 13:28 Delta Troponin T 16.19 ABS# (0-10) H* 06/11/23 13:28 NT-Pro-B Natriuret Pep 6747 pg/mL (0-125) H 06/11/23 11:17 Total Protein 6.8 g/dL (6.6-8.7) D 06/13/23 03:50 Albumin 4.0 g/dL (3.5-5.2) 06/13/23 03:50 Globulin 2.8 g/dL (1.3-4.6) 06/13/23 03:50 TSH 1.43 uIU/mL (0.27-4.20) 06/11/23 11:17 Vitals Last Vital Signs Temp 97.8 F 06/13/23 06:00 Pulse 60 06/13/23 14:00 Resp 28 H 06/13/23 13:00 BP 136/53 06/13/23 13:00 Pulse Ox 92 06/13/23 13:00 O2 Del Method Nasal Cannula 06/13/23 07:52 O2 Flow Rate 2 06/13/23 07:52 Discharge Plan Discharge Patient Disposition: Home Condition: Stable Prescriptions: New furosemide [Lasix] 40 mg tablet 20 mg PO DAILY PRN (Reason: edema) Qty: 90 0RF Continued hydrocodone-acetaminophen 10-325 mg tablet 1 - 2 tab PO Q4H PRN (Reason: Pain) 30 Days Qty: 120 0RF losartan-hydrochlorothiazide 100-25 mg tablet 1 tab PO DAILY Qty: 90 0RF duloxetine 30 mg capsule,delayed release(DR/EC) 30 mg PO DAILY Adult Multivitamin Gummies 200 mcg Tablet,Chewable 1 tab PO BID epinephrine [EpiPen 2-Yifan] 0.3 mg/0.3 mL auto-injector 0.3 mg IM Q10M PRN (Reason: anaphylaxis) Qty: 2 0RF Rx Instructions: for 2 doses diphenhydramine HCl [Benadryl] 25 mg capsule 25 mg PO Q4H PRN (Reason: allergic reaction) Qty: 30 0RF gabapentin 400 mg capsule 400 mg PO BEDTIME alprazolam 0.5 mg tablet 0.5 mg PO TID PRN (Reason: Anxiety) Discontinued diclofenac sodium 75 mg tablet,delayed release (DR/EC) 75 mg PO BID Discharge Orders: Discharge Order (Routine); Ordered 06/13/23 Ordered By: Santi Diaz Referrals: [facility] [Provider Group] - 06/19/23 9:15 am (appointment scheduled :[facility]N for inpatient follow up ,post permanent pacemaker ) Yash Sosa DO [Primary Care Provider] - 06/23/23 11:20 am Discharge Diet: Cardiac and Low Cholesterol Discharge Activity: Limit activity as instructed Patient Instructions: Furosemide (By mouth), Heart Failure (GEN), Gallstones (GEN), Heart Block (GEN), Bradycardia (GEN), Hypertension (GEN), Pacemaker (GEN), Opioid Safety Activity Restrictions/Additional Instructions: May remove bandage in 2 days May begin daily showers in 3 days Dry incision carefully after showers. May re-cover if desired to prevent irritation from clothing. No swimming or tub baths x 2 weeks No ointments on incision Report drainage, redness, heat, increased pain, fever, or swelling to clinic Do not raise left arm above eye level or lift more than 5 pounds for 2 weeks Will follow-up in [facility] in 1 week Maintain low-cholesterol diet. Follow-up with your primary doctor regarding gallstones. Seek medical attention in case of any worsening or new concerning symptoms. In case of weight gain with the edema, will worsens dyspnea, daily Lasix, take an additional dose in case of weight gain of more than 3 pounds in 2 days. Contact your shingle carrier and primary doctor's office. Maintain cardiac diet, avoid excessive fluid intake as you will be at risk of congestive heart failure exacerbations. Monitor weights daily. Uncontrolled blood pressure will put you at risk of additional worsening of heart failure. Continue to measure blood pressures at least twice, better 3 times daily, write down values, continue to work with your primary doctor and cardiology to optimize blood pressure control. Follow-up with cardiology and your primary provider also with regards to valvular heart disease with mitral stenosis, aortic regurgitation. Follow-up with cardiology and your primary doctor also regarding pulmonary hypertension. Discussed consideration of referral to pulmonology. Please discontinue diclofenac. As discussed, avoid NSAIDs. Continue Protonix and follow-up with primary provider for reassessment of suspected inflammation in your stomach, possible ulcers, once you are recovered from acute illness discussed additional assessment by endoscopy and testing for H. pylori. Discharge Attestations Time Spent in Discharge Care*: greater than 30 min Quality Metrics Clinical Quality Measures [ No reported AMI, CVA or VTE this stay] Coding Level of Care Code 96898 Total time (in minutes) for Discharge: 60 Diagnoses Status post placement of cardiac pacemaker Z95.0
--- NOTE | 2023-06-13 16:51 | PC.NURSE ---
farr removed and up ambulated in [facility].. voided post . iv removed whole and intact prepairing for discharge
== END 2023-06-13 17:30 | disposition home or self-care (01) | DRG 242 ==
LOC: ER 11:05 → CCL 14:15 → ICU 06-12 05:54
PROVIDERS: Internal Medicine; Thoracic Surgery (Cardiothoracic Vascular Surgery); Admitting Provider Internal Medicine; Emergency Provider Family Medicine; PCP Family Medicine; Visit Provider Internal Medicine
PROC: B2111ZZ Fluoroscopy of Multiple Coronary Arteries using Low Osmolar Contrast (ICD-10-PCS; principal; 2023-06-11 14:30)
PROC: 0JH606Z Insertion of Pacemaker, Dual Chamber into Chest Subcutaneous Tissue and Fascia, Open Approach (ICD-10-PCS; principal; 2023-06-12 14:30)
DX: I44.1 Atrioventricular block, second degree (principal); I50.31 Acute diastolic (congestive) heart failure; I16.0 Hypertensive urgency; I11.0 Hypertensive heart disease with heart failure; M19.90 Unspecified osteoarthritis, unspecified site; G89.29 Other chronic pain; K29.70 Gastritis, unspecified, without bleeding; T39.395A Adverse effect of other nonsteroidal anti-inflammatory drugs [NSAID], initial encounter; I08.3 Combined rheumatic disorders of mitral, aortic and tricuspid valves; I27.20 Pulmonary hypertension, unspecified; K80.20 Calculus of gallbladder without cholecystitis without obstruction; K80.70 Calculus of gallbladder and bile duct without cholecystitis without obstruction; K83.8 Other specified diseases of biliary tract; Z79.891 Long term (current) use of opiate analgesic; E80.6 Other disorders of bilirubin metabolism
CPT/HCPCS: 33210; 36415; 51702; 71045; 76000; 76705; 80053; 82248; 83735; 83880; 84443; 84484; 85025; 93005; 93306; 93454; 94760; 96365; 96372; 96374; 96375; 96376; 99152; 99153; 99285; C1751; C1760; C1769; C1779; C1786; C1887; C1894; C9113; J0360; J0690; J1644; J1940; J2060; J2250; J2270; J2405; J2550; J2704; J3010; J3490; J7030; Q9967

== ENCOUNTER → 2023-06-19 09:17 | Outpatient (BNVA) | payer MEDICARE, SELFPAY | PROVIDERS: PCP Family Medicine; Visit Provider Nurse Practitioner Family | DX: Z95.0 Presence of cardiac pacemaker (principal); I48.91 Unspecified atrial fibrillation | CPT/HCPCS: 99214 ==

== ENCOUNTER → 2023-06-27 13:00 | Outpatient (BNVA) | payer MEDICARE, SELFPAY | PROVIDERS: PCP Family Medicine; Visit Provider Internal Medicine | DX: I48.91 Unspecified atrial fibrillation (principal) | CPT/HCPCS: 85610 ==

== ENCOUNTER → 2023-07-10 13:53 | Outpatient (BNVA) | payer MEDICARE, SELFPAY | PROVIDERS: PCP Family Medicine; Visit Provider Internal Medicine | DX: I48.91 Unspecified atrial fibrillation (principal) | CPT/HCPCS: 85610 ==

== ENCOUNTER → 2023-07-24 10:51 | Outpatient (BNVA) | payer MEDICARE, SELFPAY | PROVIDERS: PCP Family Medicine; Visit Provider Internal Medicine | DX: I48.91 Unspecified atrial fibrillation (principal) | CPT/HCPCS: 85610 ==

== ENCOUNTER → 2023-08-18 12:46 | Outpatient (BNVA) | payer MEDICARE, SELFPAY | PROVIDERS: PCP Family Medicine; Visit Provider Family Medicine | DX: I48.91 Unspecified atrial fibrillation (principal) | CPT/HCPCS: 80053; 85610 ==

== ENCOUNTER → 2023-09-22 13:19 | Outpatient (BNVA) | payer MEDICARE, SELFPAY | PROVIDERS: PCP Family Medicine; Visit Provider Internal Medicine | DX: I48.91 Unspecified atrial fibrillation (principal) | CPT/HCPCS: 36415; 80048; 85610 ==

== ENCOUNTER → 2023-10-01 09:32 | Outpatient (BNVA) | payer MEDICARE, SELFPAY | PROVIDERS: PCP Family Medicine; Visit Provider Internal Medicine | DX: I48.91 Unspecified atrial fibrillation (principal) | CPT/HCPCS: 85610 ==

== ENCOUNTER → 2023-10-13 11:05 | Outpatient (BNVA) | payer MEDICARE, SELFPAY | PROVIDERS: PCP Family Medicine; Visit Provider Internal Medicine | DX: Z45.010 Encounter for checking and testing of cardiac pacemaker pulse generator [battery] (principal) | CPT/HCPCS: 93296 ==

== ENCOUNTER → 2023-10-16 09:50 | Outpatient (BNVA) | payer MEDICARE, SELFPAY | PROVIDERS: PCP Family Medicine; Visit Provider Internal Medicine | DX: I48.91 Unspecified atrial fibrillation (principal) | CPT/HCPCS: 85610 ==

== ENCOUNTER → 2023-10-31 10:11 | Outpatient (BNVA) | payer MEDICARE, SELFPAY | PROVIDERS: PCP Family Medicine; Visit Provider Family Medicine | DX: E87.1 Hypo-osmolality and hyponatremia (principal) | CPT/HCPCS: 80048 ==

== ENCOUNTER → 2023-11-14 10:28 | Outpatient (BNVA) | payer MEDICARE, SELFPAY | PROVIDERS: PCP Family Medicine; Visit Provider Family Medicine | DX: E87.1 Hypo-osmolality and hyponatremia (principal); E87.6 Hypokalemia; N28.9 Disorder of kidney and ureter, unspecified | CPT/HCPCS: 80048 ==

== ENCOUNTER → 2023-11-20 08:51 | Outpatient (BNVA) | payer MEDICARE, SELFPAY | PROVIDERS: PCP Family Medicine | DX: I48.91 Unspecified atrial fibrillation (principal) | CPT/HCPCS: 85610 ==

== ENCOUNTER → 2023-11-27 08:56 | Outpatient (BNVA) | payer MEDICARE, SELFPAY | PROVIDERS: PCP Family Medicine; Visit Provider Internal Medicine | DX: I48.91 Unspecified atrial fibrillation (principal) | CPT/HCPCS: 85610 ==

== ENCOUNTER → 2023-12-25 09:19 | Outpatient (BNVA) | payer MEDICARE, SELFPAY | PROVIDERS: PCP Family Medicine; Visit Provider Internal Medicine | DX: I48.91 Unspecified atrial fibrillation (principal) | CPT/HCPCS: 85610 ==

== ENCOUNTER → 2024-01-22 09:21 | Outpatient (BNVA) | payer MEDICARE, SELFPAY | PROVIDERS: PCP Family Medicine; Visit Provider Internal Medicine | DX: I48.91 Unspecified atrial fibrillation (principal) | CPT/HCPCS: 85610 ==

== ENCOUNTER → 2024-02-18 09:17 | Outpatient (BNVA) | payer MEDICARE, SELFPAY | PROVIDERS: PCP Family Medicine; Visit Provider Internal Medicine | DX: I48.91 Unspecified atrial fibrillation (principal) | CPT/HCPCS: 85610 ==

== ENCOUNTER → 2024-03-17 09:13 | Outpatient (BNVA) | payer MEDICARE, SELFPAY | PROVIDERS: PCP Family Medicine; Visit Provider Internal Medicine | DX: I48.91 Unspecified atrial fibrillation (principal) | CPT/HCPCS: 85610 ==

== ENCOUNTER → 2024-04-07 12:36 | Outpatient (BNVA) | payer MEDICARE, SELFPAY | PROVIDERS: PCP Family Medicine; Visit Provider Internal Medicine | DX: Z45.010 Encounter for checking and testing of cardiac pacemaker pulse generator [battery] (principal) | CPT/HCPCS: 93296 ==

== ENCOUNTER → 2024-04-14 09:32 | Outpatient (BNVA) | payer MEDICARE, SELFPAY | PROVIDERS: PCP Family Medicine; Visit Provider Internal Medicine | DX: I48.91 Unspecified atrial fibrillation (principal) | CPT/HCPCS: 85610 ==

== ENCOUNTER → 2024-05-18 10:46 | Outpatient (BNVA) | payer MEDICARE, SELFPAY | PROVIDERS: PCP Family Medicine; Visit Provider Internal Medicine | DX: I48.91 Unspecified atrial fibrillation (principal) | CPT/HCPCS: 85610 ==

== ENCOUNTER → 2024-06-15 10:54 | Outpatient (BNVA) | payer MEDICARE, SELFPAY | PROVIDERS: PCP Family Medicine; Visit Provider Internal Medicine | DX: I48.91 Unspecified atrial fibrillation (principal) | CPT/HCPCS: 85610 ==

== ENCOUNTER → 2024-07-13 10:42 | Outpatient (BNVA) | payer MEDICARE, SELFPAY | PROVIDERS: PCP Family Medicine; Visit Provider Internal Medicine | DX: I48.91 Unspecified atrial fibrillation (principal) | CPT/HCPCS: 85610 ==

== ENCOUNTER 2024-08-05 12:10 | Emergency (ER) | payer MEDICARE, SELFPAY ==
[2024-08-05 12:28] VITALS: BP 140/64; PULSE 78; RESP 16; TEMP 36.7; O2SAT 94; BMI 26.4
--- NOTE | 2024-08-05 13:27 | XRR_ITS ---
PROCEDURE INFORMATION: Exam: XR Chest Exam date and time: 08/05/2024 1:48 PM Age: 74 years old Clinical indication: Other: Weakness TECHNIQUE: Imaging protocol: Radiologic exam of the chest. Views: 1 view. COMPARISON: CR XR chest 1V portable [id number] 06/12/2023 7:23 PM FINDINGS: Lungs: No focal consolidation. Pleural spaces: No evidence of pneumothorax. No evidence of pleural effusion. Heart/Mediastinum: Cardiomediastinal silhouette is within normal limits. Left subclavian approach dual-chamber pacemaker. Bones/joints: No evidence of acute osseous abnormality. Old right-sided rib fractures. XR/XR chest 1V portable [id number] IMPRESSION: 1. No acute cardiopulmonary abnormality.
--- NOTE | 2024-08-05 13:27 | CT_ITS ---
WS: [id number] CT HEAD TECHNIQUE: Noncontrast CT of the head obtained from the skullbase to the vertex. CLINICAL INFORMATION: Encephalopathy, altered mental status COMPARISON: None. DLP: 1042.[address] scans at [facility] use at least one of these dose optimization techniques: automated e xposure control; mA and/or kV adjustment per patient size (includes targeted exams where dose is matc hed to clinical indication); or iterative reconstruction. FINDINGS: No evidence of intracranial hemorrhage or mass effect. Ventricular system and basal cisterns are vicente nt. Mild small vessel changes with mild parenchymal volume loss. No extra-axial fluid collections. No evidence of mass or mass effect. Tiny chronic lacunar infarct RIGHT cerebellum. Tiny chronic lacunar infarct RIGHT thalamus. Vascular calcification. Paranasal sinuses and mastoid air cells are well aerated. .Normal visualized soft tissues. CT/CT head wo con* [id number] IMPRESSION: 1. No evidence of intracranial hemorrhage or mass effect. 2. No acute intracranial findings.
[2024-08-05 13:47] LABS: Bilirubin Urine Negative (Negative); Blood Urine 2+ (Negative); Glucose Urine UA Negative (Normal); Ketones Urine Negative (Negative); Leukocyte Esterase Urine 3+ (Negative); Nitrate Urine Negative (Negative); Protein Urine 1+ (Negative); Specific Gravity, Urine 1.015 (1.005-1.030); Urine Appearance Cloudy (CLEAR); Urine Color Yellow (Yellow); pH Urine 5.5 (5-7)
[2024-08-05 13:54] LABS: Bacteria Urine 2+ /hpf; Hyaline Casts Urine 0.81 /lpf; WBC Urine 21-50 /hpf (0-5)
[2024-08-05 13:56] LABS: Add Urine Culture? Yes
[2024-08-05 14:37] LABS: Basophils # 0.1 10^3/uL (0.0-0.1); Basophils % 0.6 %; Eosinophils # 0.1 10^3/uL (0.0-0.8); Eosinophils % 0.9 %; Hematocrit 35.2 % (36-47); Lymphocytes # 0.7 10^3/uL (0.8-4.8); Lymphocytes % 7.1 %; Mean Corpuscular HGB Conc 31.8 g/dL (30-55); Mean Corpuscular Hemoglobin 28.7 pg (27-33); Mean Corpuscular Volume 90.3 fl (85-98); Mean Platelet Volume 9.1 fL (7.4-10.4); Monocytes # 0.9 10^3/uL (0.2-0.9); Monocytes % 9.1 %; Neutrophils # 8.42 10^3/uL (1.8-7.7); Neutrophils % 81.6 %; Nucleated Red Blood Cells % 0 %; Platelet Count 421 10^3/cmm (157-399); Red Cell Distribution Width 13.6 % (12.1-15.1); White Blood Count 10.31 10^3/uL (3.29-11.43)
--- NOTE | 2024-08-05 14:38 | W.ED.AMS ---
HPI - Altered Mental Status General: Chief Complaint: Altered Mental Status Stated Complaint: ams Time Seen by Provider: 08/05/24 13:24 History of Present Illness: 74-year-old female with history of arthritis, chronic pain syndrome and hypertension who presents to the emergency room with confusion. This been going on for about 10 days now. She was seen at an urgent care and given Macrobid and got better briefly but then has gotten worse again. No focal motor deficits. She did seems a bit agitated and slightly confused. Daughter says this is not normally how she is. 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 No known fevers. No vomiting. No abdominal pain. No chest pain. No shortness of breath. Related Data Home Medications Medication Instructions Recorded Confirmed multivitamin with minerals-folic 1 tab PO BID 01/09/21 08/05/24 acid 200 mcg chewable tablet (Adult Multivitamin Gummies) nitrofurantoin 1 cap PO Q12H 08/05/24 08/05/24 monohydrate/macrocrystals 100 mg capsule Previous Rx's Medication Instructions Recorded furosemide 20 mg tablet 20 mg PO DAILY PRN edema #30 tabs 10/30/23 amlodipine 5 mg tablet 5 mg PO DAILY bp #90 tabs 10/31/23 potassium chloride 10 mEq See Rx Instructions .Route 01/27/24 capsule,extended release .COMPLEX #90 caps losartan 100 1 tab PO DAILY #90 tabs 05/07/24 mg-hydrochlorothiazide 25 mg tablet alprazolam 0.5 mg tablet 0.5 mg PO TID PRN Anxiety #90 tabs 06/08/24 carvedilol 3.125 mg tablet See Rx Instructions .Route 07/07/24 .COMPLEX #180 tabs warfarin 5 mg tablet See Rx Instructions .Route 07/23/24 .COMPLEX #90 tabs hydrocodone 10 mg-acetaminophen 1 - 2 tab PO Q4H PRN Pain 1 month 08/04/24 325 mg tablet #120 tabs cefdinir 300 mg capsule 300 mg PO BID 7 days #14 caps 08/05/24 Allergies Allergy/AdvReac Type Severity Reaction Status Date / Time prednisone Allergy Mild stomach Uncoded 10/31/23 09:26 trouble, insomnia Review of Systems Narrative: Constitutional symptoms: Negative except as documented in HPI. Skin symptoms: Negative except as documented in HPI. Eye symptoms: Negative except as documented in HPI. ENMT symptoms: Negative except as documented in HPI. Respiratory symptoms: Negative except as documented in HPI. Cardiovascular symptoms: Negative except as documented in HPI. Gastrointestinal symptoms: Negative except as documented in HPI. Genitourinary symptoms: Negative except as documented in HPI. Musculoskeletal symptoms: Negative except as documented in HPI. Neurologic symptoms: Negative except as documented in HPI. Psychiatric symptoms: Negative except as documented in HPI. Endocrine symptoms: Negative except as documented in HPI. PFSH ED PFSH: Medical History Arthritis Chronic pain Fatigue Hypertension Social History Smoking and tobacco/nicotine status: never used tobacco/nicotine Lives independently: Yes Physical Exam Narrative: General: Alert, no acute distress. Skin: Warm, dry. Head: Normocephalic, atraumatic. Neck: Supple, trachea midline. Eye: Extraocular movements are intact. Ears, nose, mouth and throat: mucosa moist. Cardiovascular: Regular, Normal peripheral perfusion. Respiratory: Lungs are clear to auscultation, respirations are non-labored, breath sounds are equal, Symmetrical chest wall expansion. Gastrointestinal: Soft, Nontender, Non distended, Normal bowel sounds. Musculoskeletal: Normal ROM, no deformity. Neurological: Alert but not oriented, No focal neurological deficit observed. Psychiatric: Patient seems confused/demented. Course Vital Signs: Vital signs: Vital Signs Temperature 98.1 F 08/05/24 12:28 Pulse Rate 69 08/05/24 15:10 Respiratory Rate 16 08/05/24 15:10 Blood Pressure 128/52 08/05/24 15:10 Pulse Oximetry 95 08/05/24 15:10 Oxygen Delivery Me thod Room Air 08/05/24 15:10 MDM - Altered Mental Status Medical Decision Making Medical decision making: Differential diagnosis including but not limited to and based on the above HPI, review of systems and physical exam: In this patient with altered mental status: Stroke. Hypoglycemia. Metabolic encephalopathy. Infections such as pneumonia, urinary tract infection, Covid-19, Influenza. Electrolyte abnormalities such as hypernatremia. Renal failure / uremia. Hepatic encephalopathy. Hypoxemia. Hypercapnic respiratory failure. Psychosis. Drug or alcohol intoxication. Medication overdose. Orders placed to evaluate differential diagnosis based on the above differential, HPI and physical exam CT head: No acute intracranial process. no intracranial hemorrhage, no evidence of infarct. no evidence of acute fracture.This was reviewed and interpreted by myself the ER physician. 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 No acute process. No infiltrate. No pneumothorax. This was reviewed and interpreted by myself the ER physician. Lab Review: Laboratory results were reviewed and interpreted by myself the emergency room physician. No leukocytosis. Stable hemoglobin 11.2. BUN/creatinine are 24 and 1. This is just slightly above her baseline. Patient does have a significant urinary tract infection. I reviewed the patient's medical record. Reexamination: Patient remained stable. No increased work of breathing. No altered mental status. No focal motor deficits. Assessment and plan: Urinary tract infection Metabolic encephalopathy ?IV Rocephin in the emergency room. Home on Omnicef. - Discharged home - Discussed findings and plan with patient. Answered any questions. - All laboratory values were reviewed and interpreted personally by myself, the ER physician - All imaging was reviewed and interpreted personally by myself, the ER physician. - Evaluation and treatment of this problem were appropriate in the emergency setting Lab Data 08/05/24 14:22 08/05/24 14:[address] 08/05/24 13:27 IMPRESSION: 1. No evidence of intracranial hemorrhage or mass effect. 2. No acute intracranial findings. Laboratory Results WBC 10.31 10^3/uL (3.29-11.43) 08/05/24 14: RBC 3.90 10^6/uL (3.85-5.65) 08/05/24 14:22 Hgb 11.20 g/dL (11.27-16.99) L 08/05/24 14:22 Hct 35.2 % (36-47) L 08/05/24 14:22 MCV 90.3 fl (85-98) 08/05/24 14:22 MCH 28.7 pg (27-33) 08/05/24 14:22 MCHC 31.8 g/dL (30-55) 08/05/24 14:22 RDW 13.6 % (12.1-15.1) 08/05/24 14:22 Plt Count 421 10^3/cmm (157-399) H 08/05/24 14:22 MPV 9.1 fL (7.4-10.4) 08/05/24 14:22 Neut % (Auto) 81.6 % 08/05/24 14:22 Lymph % (Auto) 7.1 % 08/05/24 14:22 [place] % (Auto) 9.1 % 08/05/24 14:22 Eos % (Auto) 0.9 % 08/05/24 14:22 Baso % (Auto) 0.6 % 08/05/24 14:22 Neut # (Auto) 8.42 10^3/uL (1.8-7.7) H 08/05/24 14:22 Lymph # (Auto) 0.7 10^3/uL (0.8-4.8) L 08/05/24 14:22 [place] # (Auto) 0.9 10^3/uL (0.2-0.9) 08/05/24 14:22 Eos # (Auto) 0.1 10^3/uL (0.0-0.8) 08/05/24 14:22 Baso # (Auto) 0.1 10^3/uL (0.0-0.1) 08/05/24 14:22 Nucleated RBC % (auto) 0 % 08/05/24 14: Nucleated RBCs # 0.0 /100WBC 08/05/24 14:22 Sodium 132 mmol/L (136-145) L 08/05/24 14:22 Potassium 3.7 mmol/L (3.5-5.1) 08/05/24 14:22 Chloride 93 mmol/L (98-107) L 08/05/24 14:22 Carbon Dioxide 25 mmol/L (22-29) 08/05/24 14:22 Anion Gap 17.7 (5-19) 08/05/24 14:22 BUN 24 mg/dL (8-23) H 08/05/24 14:22 Creatinine 1.0 mg/dL (0.5-0.9) H 08/05/24 14:22 GFR Calculation Not Reportable 08/05/24 14:22 Glucose 104 mg/dL (65-115) 08/05/24 14:22 Calculated Osmolality 278 mOsm/kg (285-295) L 08/05/24 14:22 Lactic Acid 1.6 mmol/L (0.5-2.2) 08/05/24 14:22 Calcium 8.9 mg/dL (8.5-10.5) 08/05/24 14:22 Total Bilirubin 0.4 mg/dL (0.15-1.2) 08/05/24 14:22 AST 22 U/L (0-32) 08/05/24 14:22 ALT 17 U/L (0-33) 08/05/24 14:22 Alkaline Phosphatase 191 U/L (35-105) H 08/05/24 14:22 C-Reactive Protein 181.6 mg/L (0.0-4.9) H 08/05/24 14:22 Total Protein 7.7 g/dL (6.6-8.7) 08/05/24 14:22 Albumin 3.4 g/dL (3.5-5.2) L 08/05/24 14:22 Globulin 4.3 g/dL (1.3-4.6) 08/05/24 14:22 Urine Color Yellow (Yellow) 08/05/24 13:34 Urine Appearance Cloudy (CLEAR) A 08/05/24 13:34 Urine pH 5.5 (5-7) 08/05/24 13:34 Ur Specific [place] 1.015 (1.005-1.030) 08/05/24 13:34 Urine Protein 1+ (Negative) A 08/05/24 13:34 Urine Glucose (UA) Negative (Normal) 08/05/24 13:34 Urine Ketones Negative (Negative) 08/05/24 13:34 Urine Blood 2+ (Negative) A 08/05/24 13:34 Urine Nitrate Negative (Negative) 08/05/24 13:34 Urine Bilirubin Negative (Negative) 08/05/24 13:34 Urine Urobilinogen 1.0 mg/dL (Negative) 08/05/24 13:34 Ur Leukocyte Esterase 3+ (Negative) A 08/05/24 13:34 Urine RBC 3-5 /hpf (0-2) 08/05/24 13:34 Urine WBC 21-50 /hpf (0-5) H 08/05/24 13:34 Ur Squamous Epith Cells 6-10 /hpf (0-5) 08/05/24 13:34 Amorphous Sediment Not Reportable 08/05/24 13:34 Urine Bacteria 2+ /hpf (NONE) H 08/05/24 13:34 Hyaline Casts 0.81 /lpf 08/05/24 13:34 All radiology interpretation(s) finalized by discharge Discharge Plan Discharge Patient Disposition: Home Clinical Impression: Urinary tract infection, Acute metabolic encephalopathy Condition: Stable Prescriptions: New cefdinir 300 mg capsule 300 mg PO BID 7 Days Qty: 14 0RF No Action amlodipine 5 mg tablet 5 mg PO DAILY Qty: 90 3RF furosemide 20 mg tablet 20 mg PO DAILY PRN (Reason: edema) Qty: 30 5RF Hold Instructions: Doctor's Order potassium chloride 10 mEq capsule, extended release See Rx Instructions .ROUTE .COMPLEX Qty: 90 1RF Dose Instruction: TAKE 1 CAPSULE BY MOUTH EVERY DAY WITH LASIX/FUROSEMIDE Rx Instructions: TAKE 1 CAPSULE BY MOUTH EVERY DAY WITH LASIX/FUROSEMIDE losartan-hydrochlorothiazide 100-25 mg tablet 1 tab PO DAILY Qty: 90 3RF alprazolam 0.5 mg tablet 0.5 mg PO TID PRN (Reason: Anxiety) Qty: 90 0RF carvedilol 3.125 mg tablet See Rx Instructions .ROUTE .COMPLEX Qty: 180 1RF Dose Instruction: TAKE 1 TABLET BY MOUTH TWICE A DAY WITH A MEAL/FOOD Rx Instructions: TAKE 1 TABLET BY MOUTH TWICE A DAY WITH A MEAL/FOOD warfarin 5 mg tablet See Rx Instructions .ROUTE .COMPLEX Qty: 90 0RF Dose Instruction: TAKE 1 TABLET BY MOUTH EVERY DAY PATIENT MUST MAKE APPOINTMENT AND BE SEEN FOR FURTHER REFILLS Rx Instructions: TAKEs 1 TABLET BY MOUTH EVERY Friday, Friday, Friday, Friday takes 1/2 tablet Friday , Friday hydrocodone-acetaminophen 10-325 mg tablet 1 - 2 tab PO Q4H PRN (Reason: Pain) 30 Days Qty: 120 0RF multivit with min-folic acid [Adult Multivitamin Gummies] 200 mcg Tablet,Chewable 1 tab PO BID nitrofurantoin monohyd/m-cryst 100 mg capsule 1 cap PO Q12H Discharge Orders: Discharge ED (Routine); Ordered 08/05/24 Ordered By: Светлана Thomson Referrals: Yash Sosa DO [Primary Care Provider] - Discharge Diet: Usual diet Discharge Activity: Resume usual activity Patient Instructions: Altered Mental Status (ED), Urinary Tract Infection in Older Adults (ED) Activity Restrictions/Additional Instructions: Thank you for choosing [facility] for your healthcare needs today. Please realize this is an emergency room and that we are providing you with a medical screening exam and this may not be complete and all inclusive of all the testing and or work up that you may need to determine your ailment or severity of your illness. You have been screened and evaluated and felt safe for discharge. Health conditions do change or evolve sometimes and as such it is important that you follow up with your Primary Doctor to be re checked, 3-5 days is a general good time frame for follow up. You are always welcome to return to the ED for re assessment if your symptoms are worsening or you have new concerns Coding Level of Care Code ED Cosmetic Consultant for Rena Hannah
[2024-08-05 14:57] LABS: Alanine Aminotransferase 17 U/L (0-33); Albumin Level 3.4 g/dL (3.5-5.2); Alkaline Phosphatase 191 U/L (35-105); Aspartate Amino Transferase 22 U/L (0-32); Blood Urea Nitrogen 24 mg/dL (8-23); C Reactive Protein 181.6 mg/L (0.0-4.9); Calcium 8.9 mg/dL (8.5-10.5); Carbon Dioxide 25 mmol/L (22-29); Chloride 93 mmol/L (98-107); Globulin 4.3 g/dL (1.3-4.6); Glucose 104 mg/dL (65-115); Lactic Sepsis W/Reflex 1.6 mmol/L (0.5-2.2); Osmolality Calculated 278 mOsm/kg (285-295); Sodium 132 mmol/L (136-145); Total Bilirubin 0.4 mg/dL (0.15-1.2); Total Protein 7.7 g/dL (6.6-8.7)
[2024-08-05 14:59] LABS: Creatinine Clr Calc Pharmacy 48.0604
[2024-08-05 15:00] LABS: Anion Gap 17.7 (5-19); Potassium 3.7 mmol/L (3.5-5.1)
[2024-08-05 15:10] VITALS: BP 128/52; PULSE 69; RESP 16; O2SAT 95
[2024-08-05] MEDS: cefTRIAXone 1,000 mg SDV 1000 MG IVP (15:14)
[2024-08-05 15:47] LABS: Covid PCR NEGATIVE (Negative); Influenza A NEGATIVE (Negative); Influenza B NEGATIVE (Negative); Respiratory Syncytial Virus Ce NEGATIVE (Negative)
[2024-08-05 15:53] VITALS: BP 131/71; PULSE 70; O2SAT 94
[2024-08-05 16:46] VITALS: BP 147/67; PULSE 79; RESP 18; O2SAT 93
== END 2024-08-05 16:34 | disposition home or self-care (01) ==
PROVIDERS: Emergency Provider Emergency Medicine; PCP Family Medicine
DX: N39.0 Urinary tract infection, site not specified (principal); G93.41 Metabolic encephalopathy; Z79.01 Long term (current) use of anticoagulants; I10 Essential (primary) hypertension
CPT/HCPCS: 0241U; 36415; 70450; 71045; 80053; 81001; 83605; 85025; 86140; 87040; 87077; 87086; 87150; 87186; 87205; 96374; 99285; J0696

== ENCOUNTER → 2024-08-10 10:53 | Outpatient (BNVA) | payer MEDICARE, SELFPAY | PROVIDERS: PCP Family Medicine; Visit Provider Internal Medicine | DX: I48.91 Unspecified atrial fibrillation (principal) | CPT/HCPCS: 85610 ==

== ENCOUNTER → 2024-08-17 10:11 | Outpatient (BNVA) | payer MEDICARE, SELFPAY | PROVIDERS: PCP Family Medicine; Visit Provider Internal Medicine | DX: I48.91 Unspecified atrial fibrillation (principal) | CPT/HCPCS: 85610 ==

== ENCOUNTER → 2024-08-23 12:11 | Outpatient (BNVA) | payer MEDICARE, SELFPAY | PROVIDERS: PCP Family Medicine; Visit Provider Family Medicine | DX: N39.0 Urinary tract infection, site not specified (principal) | CPT/HCPCS: 81000; 87086 ==

== ENCOUNTER → 2024-09-14 10:04 | Outpatient (BNVA) | payer MEDICARE, SELFPAY | PROVIDERS: PCP Family Medicine; Visit Provider Internal Medicine | DX: I48.91 Unspecified atrial fibrillation (principal) | CPT/HCPCS: 85610 ==

== ENCOUNTER → 2024-10-12 11:31 | Outpatient (BNVA) | payer MEDICARE, SELFPAY | PROVIDERS: PCP Family Medicine; Visit Provider Internal Medicine | DX: I48.91 Unspecified atrial fibrillation (principal) | CPT/HCPCS: 85610 ==

== ENCOUNTER → 2024-10-18 10:26 | Outpatient (BNVA) | payer MEDICARE, SELFPAY | PROVIDERS: PCP Family Medicine; Visit Provider Internal Medicine | DX: I48.91 Unspecified atrial fibrillation (principal) | CPT/HCPCS: 85610 ==

== ENCOUNTER → 2024-11-03 14:18 | Outpatient (BNVA) | payer MEDICARE, SELFPAY | PROVIDERS: PCP Family Medicine; Visit Provider Internal Medicine | DX: I48.91 Unspecified atrial fibrillation (principal) | CPT/HCPCS: 85610 ==

== ENCOUNTER → 2024-12-01 11:31 | Outpatient (BNVA) | payer MEDICARE, SELFPAY | PROVIDERS: PCP Family Medicine; Visit Provider Internal Medicine | DX: I48.91 Unspecified atrial fibrillation (principal) | CPT/HCPCS: 85610 ==

== ENCOUNTER → 2024-12-22 11:08 | Outpatient (BNVA) | payer MEDICARE, SELFPAY | PROVIDERS: PCP Family Medicine; Visit Provider Internal Medicine | DX: I48.91 Unspecified atrial fibrillation (principal) | CPT/HCPCS: 85610 ==

== ENCOUNTER → 2025-01-20 12:21 | Outpatient (BNVA) | payer MEDICARE, SELFPAY | PROVIDERS: PCP Family Medicine; Visit Provider Internal Medicine | DX: I48.91 Unspecified atrial fibrillation (principal) | CPT/HCPCS: 85610 ==

== ENCOUNTER → 2025-02-17 11:13 | Outpatient (BNVA) | payer MEDICARE, SELFPAY | PROVIDERS: PCP Family Medicine; Visit Provider Internal Medicine | DX: I48.91 Unspecified atrial fibrillation (principal) | CPT/HCPCS: 85610 ==

== ENCOUNTER → 2025-03-03 11:12 | Outpatient (BNVA) | payer MEDICARE, SELFPAY | PROVIDERS: PCP Family Medicine; Visit Provider Internal Medicine | DX: I48.91 Unspecified atrial fibrillation (principal) | CPT/HCPCS: 85610 ==

== ENCOUNTER → 2025-03-10 11:23 | Outpatient (BNVA) | payer MEDICARE, SELFPAY | PROVIDERS: PCP Family Medicine; Visit Provider Internal Medicine | DX: I48.91 Unspecified atrial fibrillation (principal) | CPT/HCPCS: 85610 ==

== ENCOUNTER → 2025-03-17 10:52 | Outpatient (BNVA) | payer MEDICARE, SELFPAY | PROVIDERS: PCP Family Medicine; Visit Provider Internal Medicine | DX: I48.91 Unspecified atrial fibrillation (principal); Z79.01 Long term (current) use of anticoagulants; I10 Essential (primary) hypertension; Z95.0 Presence of cardiac pacemaker; I05.0 Rheumatic mitral stenosis | CPT/HCPCS: 99214 ==

== ENCOUNTER → 2025-04-07 11:16 | Outpatient (BNVA) | payer MEDICARE, SELFPAY | PROVIDERS: PCP Family Medicine; Visit Provider Internal Medicine | DX: I48.91 Unspecified atrial fibrillation (principal) | CPT/HCPCS: 85610 ==

== ENCOUNTER → 2025-04-21 11:13 | Outpatient (BNVA) | payer MEDICARE, SELFPAY | PROVIDERS: PCP Family Medicine; Visit Provider Internal Medicine | DX: I48.91 Unspecified atrial fibrillation (principal) | CPT/HCPCS: 85610 ==

== ENCOUNTER 2025-05-03 06:20 | Outpatient (CLI) | payer MEDICARE, SELFPAY ==
--- NOTE | 2025-05-03 06:15 | USCV_ITS ---
Jayson Cecily Age: 74 Gender: F : 1950 Exam Date: 05/03/2025 06:33 Ordering Phys: Mik Nolasco M.D ([email or web address]) Technologist: Exam Location: [facility] [place] Indication: mitral stenosis BP: 132 / 75 HR: 66 Rhythm: Sinus Technical Quality: Adequate MEASUREMENTS (Male / Female) Normal Values 2D ECHO LV Diastolic Diameter PLAX 3.8 cm 4.2 - 5.9 / 3.9 - 5.3 cm IVS Diastolic Thickness 1.4 cm 0.6 - 1.0 / 0.6 - 0.9 cm IVS Systolic Thickness 2.0 cm LVPW Diastolic Thickness 1.4 cm 0.6 - 1.0 / 0.6 - 0.9 cm LVPW Systolic Thickness 1.9 cm LVOT Diameter 2.0 cm LV Ejection Fraction 2D Teich 61.7 % LV Ejection Fraction MOD 4C 61.4 % LV Ejection Fraction MOD 2C 62.1 % LV Ejection Fraction 2C AL 60.2 % LA Diameter 3.1 cm RA Systolic Volume 4C AL 34.1 ml RA Systolic Volume 4C MOD 33.9 ml Aorta at Sinotubular Diameter 2.5 cm M-MODE LA Ao Ratio MM 1.2 AV Cusp Separation MM 1.7 cm DOPPLER AV Peak Velocity 134.0 cm/s LVOT Peak Velocity 114.0 cm/s AV Area Cont Eq vti 2.8 cm squared AV Area Cont Eq pk 2.7 cm squared MV Peak Velocity 195.0 cm/s MV Area PHT 3.2 cm squared Mitral E to A Ratio 1.1 TV Peak Velocity 211.0 cm/s TR Peak Velocity 290.0 cm/s TR Peak Gradient 33.6 mmHg TV Peak E Velocity 109.0 cm/s PV Peak Velocity 110.7 cm/s FINDINGS Left Ventricle Left ventricle is normal in size. LV systolic function is normal with EF of 60 to 65%. No regional wall motion abnormalities are seen Right Ventricle Normal in size and function. Right Atrium Normal in size Left Atrium Dilated Mitral Valve Severe mitral annular calcification. Moderate mitral stenosis with aortic mean gradient across mitral valve of 6.3mmHg. Mild mitral regurgitation Aortic Valve Aortic valve is thickened. No significant stenosis. Aortic regurgitation is seen however after Doppler signals are suboptimal and cannot accurately assess severity. Tricuspid Valve Mild tricuspid regurgitation. Pulmonary artery systolic pressure is normal. Pulmonic Valve Mild pulmonic regurgitation Pericardium Normal Aorta Normal in size IVC Not well visualized CONCLUSIONS LV systolic function is normal with EF of 60-65%. Left atrial dilation Moderate mitral stenosis. Mild mitral regurgitation Mild tricuspid regurgitation Mild pulmonic regurgitation Aortic regurgitation is seen however after Doppler signals are suboptimal and cannot accurately assess severity. Compared to prior echocardiogram from 2022, no significant changes are seen. Mik Nolasco MD (Electronically Signed) Final Date: 07 May 2025 21:52 S
== END 2025-05-03 06:21 | disposition home or self-care (01) ==
LOC: RAD 06:21
PROVIDERS: PCP Family Medicine; Visit Provider Internal Medicine
DX: I05.0 Rheumatic mitral stenosis (principal); I35.8 Other nonrheumatic aortic valve disorders; I35.1 Nonrheumatic aortic (valve) insufficiency; I07.1 Rheumatic tricuspid insufficiency; I37.1 Nonrheumatic pulmonary valve insufficiency; R93.1 Abnormal findings on diagnostic imaging of heart and coronary circulation
CPT/HCPCS: 93306

== ENCOUNTER → 2025-05-19 11:04 | Outpatient (BNVA) | payer MEDICARE, SELFPAY | PROVIDERS: PCP Family Medicine; Visit Provider Internal Medicine | DX: I48.91 Unspecified atrial fibrillation (principal) | CPT/HCPCS: 85610 ==

== ENCOUNTER → 2025-06-16 11:47 | Outpatient (BNVA) | payer MEDICARE, SELFPAY | PROVIDERS: PCP Family Medicine; Visit Provider Internal Medicine | DX: I48.91 Unspecified atrial fibrillation (principal) | CPT/HCPCS: 85610 ==

== ENCOUNTER → 2025-07-14 11:14 | Outpatient (BNVA) | payer MEDICARE, SELFPAY | PROVIDERS: PCP Family Medicine; Visit Provider Internal Medicine | DX: I48.91 Unspecified atrial fibrillation (principal) | CPT/HCPCS: 85610 ==

== ENCOUNTER → 2025-08-11 11:17 | Outpatient (BNVA) | payer MEDICARE, SELFPAY | PROVIDERS: PCP Family Medicine; Visit Provider Internal Medicine | DX: I48.91 Unspecified atrial fibrillation (principal) | CPT/HCPCS: 85610 ==

== ENCOUNTER → 2025-09-08 11:39 | Outpatient (BNVA) | payer MEDICARE, SELFPAY | PROVIDERS: PCP Family Medicine; Visit Provider Internal Medicine | DX: I48.91 Unspecified atrial fibrillation (principal) | CPT/HCPCS: 85610 ==

== ENCOUNTER → 2025-09-21 11:44 | Outpatient (BNVA) | payer MEDICARE, SELFPAY | PROVIDERS: PCP Family Medicine; Visit Provider Internal Medicine | DX: I48.91 Unspecified atrial fibrillation (principal) | CPT/HCPCS: 85610 ==

== ENCOUNTER → 2025-10-18 11:48 | Outpatient (BNVA) | payer MEDICARE, SELFPAY | PROVIDERS: PCP Family Medicine; Visit Provider Internal Medicine | DX: I48.91 Unspecified atrial fibrillation (principal) | CPT/HCPCS: 85610 ==

== ENCOUNTER → 2025-10-25 11:48 | Outpatient (BNVA) | payer MEDICARE, SELFPAY | PROVIDERS: PCP Family Medicine; Visit Provider Internal Medicine | DX: I48.91 Unspecified atrial fibrillation (principal) | CPT/HCPCS: 85610 ==